=== PATIENT | female | born 1935 | race Caucasian/White ===

== ENCOUNTER → 2018-01-09 15:06 | Outpatient (CLI) | payer OTHER, SELFPAY ==
--- NOTE | 2018-01-09 | DI.MG.S_ITS ---
BILATERAL DIGITAL SCREENING MAMMOGRAM 3D/2D WITH CAD: 01/09/2018 CLINICAL: Routine screening. Comparison is made to exams dated: 01/03/2017 mammogram, 11/08/2014 mammogram, and 11/20/2015 mammogram - [facility]. There are scattered fibroglandular elements in both breasts. Current study was also evaluated with a Computer Aided Detection (CAD) system. There is a biopsy clip in the right breast. No significant masses, calcifications, or other findings are seen in either breast. There has been no significant interval change. IMPRESSION: NEGATIVE There is no mammographic evidence of malignancy. A 1 year screening mammogram is recommended. This exam was interpreted at Station ID: [id number]. NOTE: For mammograms, a report in lay terms will be sent to the patient. Approximately 15% of breast malignancies will not be visualized mammographically. In the management of a palpable breast mass, a negative mammogram must not discourage biopsy of a clinically suspicious lesion. Electronically Signed By: Adalid love/brittney:01/09/2018 16:31:00 copy to: Verenice Escoto letter sent: Normal Exam ACR BI-RADS Category 1: Negative 3341F
== END ==
PROVIDERS: Family Provider Family Medicine; PCP Family Medicine; Visit Provider Family Medicine
DX: Z12.31 Encounter for screening mammogram for malignant neoplasm of breast (principal)
CPT/HCPCS: 77063; 77067

== ENCOUNTER → 2018-02-22 07:24 | Outpatient (CLI) | payer OTHER, SELFPAY ==
[2018-02-22 08:11] LABS: Hemoglobin A1C% w Est Avg Glu 6.4 % (4.0-6.0)
[2018-02-22 08:25] LABS: Alanine Aminotransferase 24 IU/L (9-52); Albumin 4.1 g/dL (3.5-5.0); Albumin Globulin Ratio 1.4 (1.0-2.8); Alkaline Phosphatase 60 U/L (38-126); Aspartate Aminotransferase 23 IU/L (14-36); BUN Creatinine Ratio 24.3 (6-22); Bilirubin Total 0.6 mg/dL (0.2-1.3); Blood Urea Nitrogen 17 mg/dL (7-17); Calcium 9.6 mg/dL (8.4-10.2); Carbon Dioxide 30 mmol/L (22-32); Chloride 101 mmol/L (98-107); Cholesterol 130 mg/dL (140-199); Estimated Glomerular Filt Rate > 60.0 mL/min (>60); Glucose 140 mg/dL (80-110); HDL Cholesterol 43 mg/dL (40-60); HEMOLYSIS < 15 (0-50); LDL Cholesterol Calculated 61 mg/dL (<100); Potassium 4.7 mmol/L (3.4-5.1); Sodium 140 mmol/L (137-145); Total Protein 7.1 g/dL (6.3-8.2); Triglycerides 131 mg/dL (35-150)
[2018-02-22 08:27] LABS: Add Manual Diff / Slide Review NO; Basophils Percent Auto 0.6 % (0-2); Eosinophils Percent Auto 4.7 % (2-4); Hematocrit 39.1 % (36-46); Hemoglobin 13.4 g/dL (12.0-16.0); Lymphocytes Percent Auto 30.3 % (25-40); Mean Corpuscular HGB Conc 34.3 % (30-36); Mean Corpuscular Hemoglobin 29.3 PG (26-34); Mean Corpuscular Volume 85.3 fL (80-100); Monocytes Percent Auto 7.4 % (3-14); Neutrophils Absolute Auto 3600 /uL (3000-5900); Platelet Count 238 X10^3/uL (150-400); Red Blood Cell Count 4.59 X10^6/uL (4.0-5.2); Red Cell Distribution Width 13.4 % (11.6-14.8); White Blood Cell Count 6.4 X10^3/uL (4.5-11.0)
[2018-02-22 09:04] LABS: Thyroid Stimulating Hormone 4.77 uIU/mL (0.47-4.68)
== END ==
PROVIDERS: PCP Family Medicine; Visit Provider Family Medicine
DX: E11.9 Type 2 diabetes mellitus without complications (principal); E78.2 Mixed hyperlipidemia; I10 Essential (primary) hypertension
CPT/HCPCS: 36415; 80053; 80061; 83036; 84443; 85025

== ENCOUNTER → 2018-03-27 07:10 | Outpatient (CLI) | payer OTHER, SELFPAY ==
[2018-03-27 08:16] LABS: Creatinine Urine Random 59.4 mg/dL
[2018-03-27 08:20] LABS: Microalbumi Creatinin Ratio Ur 52.1 ug/mg CR (<30); Microalbumin Urine Random 3.1 mg/dL (0-1.6)
[2018-03-27 09:50] LABS: Free T3, Triiodothyronine Free 3.04 pg/mL (2.77-5.27); Free T4, Direct Thyroxine 0.88 ng/dL (0.78-2.19)
[2018-03-27 10:03] LABS: Thyroid Stimulating Hormone 3.72 uIU/mL (0.47-4.68)
== END ==
PROVIDERS: PCP Family Medicine; Visit Provider Family Medicine
DX: E11.9 Type 2 diabetes mellitus without complications (principal); E78.2 Mixed hyperlipidemia; I10 Essential (primary) hypertension; R79.89 Other specified abnormal findings of blood chemistry
CPT/HCPCS: 36415; 82043; 82570; 84439; 84443; 84481

== ENCOUNTER → 2019-01-10 14:51 | Outpatient (CLI) | payer OTHER, SELFPAY ==
--- NOTE | 2019-01-10 | DI.MG.S_ITS ---
BILATERAL DIGITAL SCREENING MAMMOGRAM 3D/2D WITH CAD: 01/10/2019 CLINICAL: Routine screening. Comparison is made to exams dated: 01/09/2018 mammogram and 01/03/2017 mammogram - [facility]. There are scattered fibroglandular elements in both breasts. Current study was also evaluated with a Computer Aided Detection (CAD) system. There is a benign biopsy clip in the right breast. No significant masses, calcifications, or other findings are seen in either breast. There has been no significant interval change. IMPRESSION: NEGATIVE There is no mammographic evidence of malignancy. A 1 year screening mammogram is recommended. This exam was interpreted at Station ID: [id number]. NOTE: For mammograms, a report in lay terms will be sent to the patient. Approximately 15% of breast malignancies will not be visualized mammographically. In the management of a palpable breast mass, a negative mammogram must not discourage biopsy of a clinically suspicious lesion. Electronically Signed By: Magalie gonzalez/brittney:01/10/2019 16:57:12 copy to: Verenice Escoto letter sent: Normal Exam ACR BI-RADS Category 1: Negative 3341F
== END ==
PROVIDERS: Family Provider Family Medicine; PCP Family Medicine; Visit Provider Family Medicine
DX: Z12.31 Encounter for screening mammogram for malignant neoplasm of breast (principal)
CPT/HCPCS: 77063; 77067

== ENCOUNTER → 2019-05-09 07:28 | Outpatient (CLI) | payer OTHER, SELFPAY ==
[2019-05-09 08:53] LABS: Add Manual Diff / Slide Review NO; Basophils Absolute Auto 0 /uL (0-100); Basophils Percent Auto 0.5 % (0-2); Eosinophils Absolute Auto 300 /uL (0-450); Eosinophils Percent Auto 3.3 % (2-4); Hematocrit 40.9 % (36-46); Lymphocytes Absolute Auto 2800 /uL (1100-4500); Mean Corpuscular HGB Conc 34.1 % (30-36); Mean Corpuscular Hemoglobin 29.5 PG (26-34); Mean Corpuscular Volume 86.4 fL (80-100); Monocytes Absolute Auto 500 /uL (0-900); Monocytes Percent Auto 6.7 % (3-14); Neutrophils Absolute Auto 4000 /uL (1500-7000); Neutrophils Percent Auto 52.5 % (50-75); Platelet Count 238 X10^3/uL (150-400); Red Blood Cell Count 4.73 X10^6/uL (4.0-5.2); Red Cell Distribution Width 13.4 % (11.6-14.8); White Blood Cell Count 7.6 X10^3/uL (4.5-11.0)
[2019-05-09 08:58] LABS: Hemoglobin A1C% w Est Avg Glu 6.3 % (4.0-6.0)
[2019-05-09 09:02] LABS: Alanine Aminotransferase 15 IU/L (<35); Albumin 4.2 g/dL (3.5-5.0); Albumin Globulin Ratio 1.3 (1.0-2.8); Alkaline Phosphatase 62 U/L (38-126); Aspartate Aminotransferase 25 IU/L (14-36); BUN Creatinine Ratio 28.9 (6-22); Bilirubin Total 0.5 mg/dL (0.2-1.3); Blood Urea Nitrogen 26 mg/dL (7-17); Calcium 9.5 mg/dL (8.4-10.2); Carbon Dioxide 28 mmol/L (22-32); Chloride 102 mmol/L (98-107); Cholesterol 149 mg/dL (140-199); Estimated Glomerular Filt Rate 59.9 mL/min (>60); Globulin 3.2 g/dL (1.7-4.1); Glucose 133 mg/dL (80-110); HDL Cholesterol 37 mg/dL (40-60); HEMOLYSIS < 15 (0-50); LDL Cholesterol Calculated 71 mg/dL (<100); Potassium 4.8 mmol/L (3.4-5.1); Sodium 136 mmol/L (137-145); Total Protein 7.4 g/dL (6.3-8.2); Triglycerides 204 mg/dL (35-150)
[2019-05-09 09:46] LABS: Microalbumi Creatinin Ratio Ur 30.9 ug/mg CR (<30); Microalbumin Urine Random 2.2 mg/dL (0-1.6)
== END ==
PROVIDERS: Family Provider Family Medicine; PCP Family Medicine; Visit Provider Family Medicine
DX: E11.9 Type 2 diabetes mellitus without complications (principal)
CPT/HCPCS: 36415; 80053; 80061; 82043; 82570; 83036; 85025

== ENCOUNTER → 2020-01-26 12:36 | Outpatient (CLI) | payer MEDICARE, SELFPAY ==
--- NOTE | 2020-01-26 | DI.MG.S_ITS ---
BILATERAL DIGITAL SCREENING MAMMOGRAM 3D/2D WITH CAD: 01/26/2020 CLINICAL: Routine screening. Comparison is made to exams dated: 01/10/2019 mammogram, 01/09/2018 mammogram, and 01/03/2017 mammogram - [facility]. There are scattered fibroglandular elements in both breasts. Current study was also evaluated with a Computer Aided Detection (CAD) system. There are benign calcifications in both breasts. There also is a biopsy clip in the right breast. No significant masses, calcifications, or other findings are seen in either breast. There has been no significant interval change. IMPRESSION: BENIGN There is no mammographic evidence of malignancy. A 1 year screening mammogram is recommended. This exam was interpreted at Station ID: [id number]. NOTE: For mammograms, a report in lay terms will be sent to the patient. Approximately 15% of breast malignancies will not be visualized mammographically. In the management of a palpable breast mass, a negative mammogram must not discourage biopsy of a clinically suspicious lesion. Electronically Signed By: Stephen tobar/brittney:01/28/2020 08:12:24 copy to: Reinaldo Dubois letter sent: Normal Exam ACR BI-RADS Category 2: Benign Finding(s) 3342F
== END ==
PROVIDERS: Family Provider Family Medicine; PCP Family Medicine; Referring Provider Family Medicine; Visit Provider Family Medicine
DX: Z12.31 Encounter for screening mammogram for malignant neoplasm of breast (principal)
CPT/HCPCS: 77063; 77067

== ENCOUNTER → 2020-04-15 08:07 | Outpatient (CLI) | payer MEDICARE, SELFPAY ==
[2020-04-15 09:32] LABS: Hemoglobin A1C% w Est Avg Glu 6.6 % (4.0-6.0)
[2020-04-15 09:46] LABS: Alanine Aminotransferase 14 IU/L (<35); Albumin 3.9 g/dL (3.5-5.0); Albumin Globulin Ratio 1.2 (1.0-2.8); Alkaline Phosphatase 49 U/L (38-126); Aspartate Aminotransferase 26 IU/L (14-36); BUN Creatinine Ratio 36.8 (6-22); Bilirubin Total 0.6 mg/dL (0.2-1.3); Blood Urea Nitrogen 25 mg/dL (7-17); Calcium 9.1 mg/dL (8.4-10.2); Carbon Dioxide 27 mmol/L (22-32); Chloride 105 mmol/L (98-107); Cholesterol 128 mg/dL (140-199); Estimated Glomerular Filt Rate > 60.0 mL/min (>60); Globulin 3.2 g/dL (1.7-4.1); Glucose 124 mg/dL (80-110); HDL Cholesterol 35 mg/dL (40-60); HEMOLYSIS 40 (0-50); LDL Cholesterol Calculated 57 mg/dL (<100); Potassium 4.6 mmol/L (3.4-5.1); Sodium 137 mmol/L (137-145); Total Protein 7.1 g/dL (6.3-8.2); Triglycerides 179 mg/dL (35-150)
[2020-04-15 09:48] LABS: Add Manual Diff / Slide Review NO; Basophils Absolute Auto 0 /uL (0-100); Basophils Percent Auto 0.5 % (0-2); Eosinophils Absolute Auto 200 /uL (0-450); Eosinophils Percent Auto 2.8 % (2-4); Hematocrit 40.1 % (36-46); Hemoglobin 13.4 g/dL (12.0-16.0); Lymphocytes Absolute Auto 2200 /uL (1100-4500); Lymphocytes Percent Auto 30.9 % (25-40); Mean Corpuscular HGB Conc 33.5 % (30-36); Mean Corpuscular Hemoglobin 29.3 PG (26-34); Mean Corpuscular Volume 87.5 fL (80-100); Monocytes Absolute Auto 300 /uL (0-900); Neutrophils Absolute Auto 4200 /uL (1500-7000); Neutrophils Percent Auto 60.8 % (50-75); Platelet Count 213 X10^3/uL (150-400); Red Blood Cell Count 4.59 X10^6/uL (4.0-5.2); Red Cell Distribution Width 13.3 % (11.6-14.8)
== END ==
PROVIDERS: Family Provider Family Medicine; PCP Family Medicine; Referring Provider Family Medicine; Visit Provider Family Medicine
DX: E11.9 Type 2 diabetes mellitus without complications (principal); E78.2 Mixed hyperlipidemia; I10 Essential (primary) hypertension
CPT/HCPCS: 36415; 80053; 80061; 83036; 85025

== ENCOUNTER → 2020-12-29 07:18 | Outpatient (CLI) | payer MEDICARE, SELFPAY ==
[2020-12-29 08:33] LABS: Hemoglobin A1C% w Est Avg Glu 6.1 % (4.0-6.0)
[2020-12-29 08:38] LABS: BUN Creatinine Ratio 24.4 (6-22); Blood Urea Nitrogen 19 mg/dL (7-17); Calcium 10.1 mg/dL (8.4-10.2); Carbon Dioxide 26 mmol/L (22-32); Chloride 102 mmol/L (98-107); Estimated Glomerular Filt Rate > 60.0 mL/min (>60); Glucose 140 mg/dL (80-110); HEMOLYSIS < 15 (0-50); Potassium 4.9 mmol/L (3.4-5.1); Sodium 134 mmol/L (137-145)
== END ==
PROVIDERS: Family Provider Family Medicine; PCP Family Medicine; Referring Provider Family Medicine; Visit Provider Family Medicine
DX: E11.9 Type 2 diabetes mellitus without complications (principal); I10 Essential (primary) hypertension
CPT/HCPCS: 36415; 80048; 83036

== ENCOUNTER → 2021-02-13 16:43 | Outpatient (CLI) | payer MEDICARE, SELFPAY ==
--- NOTE | 2021-02-13 | DI.MG.S_ITS ---
BILATERAL DIGITAL SCREENING MAMMOGRAM 3D/2D WITH CAD: 02/13/2021 CLINICAL: Routine screening. Comparison is made to exams dated: 01/26/2020 mammogram, 01/10/2019 mammogram, and 01/09/2018 mammogram - [facility]. There are scattered fibroglandular elements in both breasts. Current study was also evaluated with a Computer Aided Detection (CAD) system. There are benign calcifications in both breasts. There also is a biopsy clip in the right breast. No significant masses, calcifications, or other findings are seen in either breast. There has been no significant interval change. IMPRESSION: BENIGN There is no mammographic evidence of malignancy. A 1 year screening mammogram is recommended. This exam was interpreted at Station ID: [id number]. NOTE: For mammograms, a report in lay terms will be sent to the patient. Approximately 15% of breast malignancies will not be visualized mammographically. In the management of a palpable breast mass, a negative mammogram must not discourage biopsy of a clinically suspicious lesion. Electronically Signed By: Magalie gonzalez/brittney:02/13/2021 18:25:30 copy to: Reinaldo Dubois letter sent: Normal Exam ACR BI-RADS Category 2: Benign Finding(s) 3342F
== END ==
PROVIDERS: Family Provider Family Medicine; PCP Family Medicine; Referring Provider Family Medicine; Visit Provider Family Medicine
DX: Z12.31 Encounter for screening mammogram for malignant neoplasm of breast (principal)
CPT/HCPCS: 77063; 77067

== ENCOUNTER → 2021-06-10 09:34 | Outpatient (CLI) | payer MEDICARE, SELFPAY ==
[2021-06-10 10:06] LABS: Add Manual Diff / Slide Review NO; Basophils Absolute Auto 100 /uL (0-100); Basophils Percent Auto 0.8 % (0-2); Eosinophils Absolute Auto 200 /uL (0-450); Eosinophils Percent Auto 3.1 % (2-4); Hematocrit 41.4 % (36-46); Lymphocytes Absolute Auto 2200 /uL (1100-4500); Lymphocytes Percent Auto 34.4 % (25-40); Mean Corpuscular HGB Conc 33.7 % (30-36); Mean Corpuscular Hemoglobin 29.3 PG (26-34); Mean Corpuscular Volume 86.9 fL (80-100); Monocytes Absolute Auto 400 /uL (0-900); Monocytes Percent Auto 5.6 % (3-14); Neutrophils Absolute Auto 3500 /uL (1500-7000); Neutrophils Percent Auto 56.1 % (50-75); Platelet Count 252 X10^3/uL (150-400); Red Blood Cell Count 4.77 X10^6/uL (4.0-5.2); Red Cell Distribution Width 14.1 % (11.6-14.8); White Blood Cell Count 6.3 X10^3/uL (4.5-11.0)
[2021-06-10 10:15] LABS: Hemoglobin A1C% w Est Avg Glu 6.1 % (4.0-6.0)
[2021-06-10 10:30] LABS: Alanine Aminotransferase 19 IU/L (<35); Albumin 4.3 g/dL (3.5-5.0); Albumin Globulin Ratio 1.4 (1.0-2.8); Alkaline Phosphatase 53 U/L (38-126); Aspartate Aminotransferase 24 IU/L (14-36); Bilirubin Total 0.8 mg/dL (0.2-1.3); Blood Urea Nitrogen 14 mg/dL (7-17); Calcium 10.3 mg/dL (8.4-10.2); Carbon Dioxide 31 mmol/L (22-32); Chloride 103 mmol/L (98-107); Estimated Glomerular Filt Rate > 60.0 mL/min (>60); Glucose 123 mg/dL (80-110); HEMOLYSIS < 15 (0-50); Potassium 4.3 mmol/L (3.4-5.1); Sodium 135 mmol/L (137-145); Total Protein 7.3 g/dL (6.3-8.2)
[2021-06-10 10:57] LABS: TSH w/ Reflex to FT4 3.06 uIU/mL (0.47-4.68)
== END ==
PROVIDERS: Family Provider Family Medicine; PCP Family Medicine; Referring Provider Family Medicine; Visit Provider Family Medicine
DX: E11.9 Type 2 diabetes mellitus without complications (principal); I10 Essential (primary) hypertension; E78.2 Mixed hyperlipidemia
CPT/HCPCS: 36415; 80053; 83036; 84443; 85025

== ENCOUNTER → 2021-10-02 08:20 | Outpatient (CLI) | payer MEDICARE, SELFPAY ==
[2021-10-02 09:41] LABS: Hemoglobin A1C% w Est Avg Glu 5.9 % (4.0-6.0)
[2021-10-02 09:54] LABS: Alanine Aminotransferase 15 IU/L (<35); Albumin Globulin Ratio 1.3 (1.0-2.8); Alkaline Phosphatase 45 U/L (38-126); Aspartate Aminotransferase 24 IU/L (14-36); BUN Creatinine Ratio 30.2 (6-22); Bilirubin Total 0.7 mg/dL (0.2-1.3); Blood Urea Nitrogen 29 mg/dL (7-17); Calcium 9.6 mg/dL (8.4-10.2); Carbon Dioxide 27 mmol/L (22-32); Chloride 101 mmol/L (98-107); Cholesterol 158 mg/dL (140-199); Estimated Glomerular Filt Rate 58 mL/min (>60); Globulin 3.1 g/dL (1.7-4.1); Glucose 108 mg/dL (80-110); HDL Cholesterol 56 mg/dL (40-60); HEMOLYSIS < 15 (0-50); LDL Cholesterol Calculated 78 mg/dL (<100); Potassium 5.2 mmol/L (3.4-5.1); Sodium 136 mmol/L (137-145); Total Protein 7.1 g/dL (6.3-8.2); Triglycerides 119 mg/dL (35-150)
== END ==
PROVIDERS: Family Provider Family Medicine; PCP Family Medicine; Referring Provider Family Medicine; Visit Provider Family Medicine
DX: E11.9 Type 2 diabetes mellitus without complications (principal); I10 Essential (primary) hypertension; E78.2 Mixed hyperlipidemia
CPT/HCPCS: 36415; 80053; 80061; 83036

== ENCOUNTER → 2022-03-05 11:18 | Outpatient (CLI) | payer MEDICARE, SELFPAY ==
--- NOTE | 2022-03-05 | DI.MG.S_ITS ---
BILATERAL DIGITAL SCREENING MAMMOGRAM 3D/2D WITH CAD: 03/05/2022 CLINICAL: Routine screening. Comparison is made to exams dated: 02/13/2021 mammogram, 01/26/2020 mammogram, and 01/10/2019 mammogram - [facility]. There are scattered areas of fibroglandular density in both breasts (category b / 25%-50% glandular tissue). Current study was also evaluated with a Computer Aided Detection (CAD) system. There are benign calcifications in both breasts. There also is a biopsy clip in the right breast. No significant masses, calcifications, or other findings are seen in either breast. There has been no significant interval change. IMPRESSION: BENIGN There is no mammographic evidence of malignancy. A 1 year screening mammogram is recommended. This exam was interpreted at Station ID: [id number]. NOTE: For mammograms, a report in lay terms will be sent to the patient. Approximately 15% of breast malignancies will not be visualized mammographically. In the management of a palpable breast mass, a negative mammogram must not discourage biopsy of a clinically suspicious lesion. Electronically Signed By: Lopez Lugo M.D., jr/brittney:03/05/2022 11:55:51 copy to: Reinaldo Dubois letter sent: Normal Exam ACR BI-RADS Category 2: Benign Finding(s) 3342F
== END ==
PROVIDERS: Family Provider Family Medicine; PCP Family Medicine; Referring Provider Family Medicine; Visit Provider Family Medicine
DX: Z12.31 Encounter for screening mammogram for malignant neoplasm of breast (principal)
CPT/HCPCS: 77063; 77067

== ENCOUNTER → 2022-05-13 15:11 | Outpatient (CLI) | payer MEDICARE, SELFPAY ==
--- NOTE | 2022-05-13 15:13 | DI.RAD.S_ITS ---
PROCEDURE: XR FOOT RT MIN 3V INDICATIONS: Evalutate and Treat TECHNIQUE: 3 views of the foot were acquired. COMPARISON: None. FINDINGS: Bones: No fractures or dislocations. Mild hallux valgus is seen. Mild to moderate right foot joint osteoarthritic changes are seen most notably at 1st MTP joint. Small plantar calcaneal enthesophyte is seen. No suspicious bony lesions. Soft tissues: No tibiotalar joint effusion. Achilles tendon appears normal. Linear calcifications are seen within plantar fascia likely represent changes related to prior injury. IMPRESSION: No right foot fracture or dislocation. 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 Dictated by: Stephen Frank M.D. on 05/13/2022 at 17:15 Approved by: Stephen Frank M.D. on 05/13/2022 at 17:16
== END ==
PROVIDERS: Family Provider Family Medicine; PCP Family Medicine; Referring Provider Family Medicine; Visit Provider Family Medicine
DX: M19.071 Primary osteoarthritis, right ankle and foot (principal); M20.11 Hallux valgus (acquired), right foot; M79.671 Pain in right foot
CPT/HCPCS: 73630

== ENCOUNTER → 2022-06-09 08:48 | Outpatient (CLI) | payer MEDICARE, SELFPAY ==
[2022-06-09 09:35] LABS: Alanine Aminotransferase 25 IU/L (<35); Albumin Globulin Ratio 1.2 (1.0-2.8); Alkaline Phosphatase 69 U/L (38-126); Aspartate Aminotransferase 24 IU/L (14-36); BUN Creatinine Ratio 21.7 (6-22); Bilirubin Total 0.6 mg/dL (0.2-1.3); Blood Urea Nitrogen 15 mg/dL (7-17); Calcium 9.7 mg/dL (8.4-10.2); Carbon Dioxide 26 mmol/L (22-32); Chloride 99 mmol/L (98-107); Estimated Glomerular Filt Rate > 60 mL/min (>60); Globulin 3.3 g/dL (1.7-4.1); Glucose 116 mg/dL (80-110); HEMOLYSIS < 15 (0-50); Potassium 4.5 mmol/L (3.4-5.1); Sodium 135 mmol/L (137-145); Total Protein 7.3 g/dL (6.3-8.2)
[2022-06-09 09:42] LABS: Creatinine Urine Random 87.8 mg/dL
[2022-06-09 10:06] LABS: Microalbumin Urine Random 25.2 mg/dL (0-1.6)
== END ==
PROVIDERS: Family Provider Family Medicine; PCP Family Medicine; Referring Provider Family Medicine; Visit Provider Family Medicine
DX: E11.9 Type 2 diabetes mellitus without complications (principal); I10 Essential (primary) hypertension; M85.80 Other specified disorders of bone density and structure, unspecified site; N28.9 Disorder of kidney and ureter, unspecified
CPT/HCPCS: 36415; 80053; 82043; 82570; 83036

== ENCOUNTER → 2022-08-17 10:39 | Outpatient (CLI) | payer MEDICARE, SELFPAY ==
--- NOTE | 2022-08-17 10:59 | DI.DEXA.S_ITS ---
Indication: osteopenia; Referring Provider: FROILAN TORRE Study: Bone densitometry was performed. Exam Date: August 17, 2022 Accession number: [id number] Bone Density: Region BMD T-score Z-score Classification AP Spine(L1-L4) 1.336 2.6 5.5 Normal Femoral Neck (Left) 0.554 -2.7 -0.1 Osteoporosis Total Hip (Left) 0.723 -1.8 0.5 Osteopenia Femoral Neck (Right) 0.609 -2.2 0.4 Osteopenia Total Hip (Right) 0.698 -2.0 0.3 Osteopenia Total Hip Mean 0.710 -1.9 0.4 Osteopenia World Health Organization criteria for BMD impression classify patients as: Normal (T-score at or above -1.0), Osteopenia (T-score between -1.0 and -2.5), or Osteoporosis (T-score at or below -2.5). 10-year Fracture Risk: FRAX not reported because: Some T-score for Spine Total or Hip Total or Femoral Neck at or below -2.5 Previous Exams: -- Region Exam Age BMD T-score BMD Change BMD Change Date g/cm2 vs Baseline vs Previous -- AP Spine (L1-L4) 08/17/2022 87 1.336 2.6 -0.092 (-6.5%)# -0.092 (-6.5%)# 07/29/2016 81 1.428 3.5 Total Hip(Left) 08/17/2022 87 0.723 -1.8 -0.096 (-11.8%)# -0.096 (-11.8%)# 07/29/2016 81 0.820 -1.0 Total Hip(Right) 08/17/2022 87 0.698 -2.0 -0.110 (-13.6%)# -0.110 (-13.6%)# 07/29/2016 81 0.808 -1.1 -- *Denotes significance at 95% confidence level, LSC for AP Spine = 0.022 g/cm2, LSC for Total Hip = 0.027 g/cm2 # Denotes dissimilar scan types or analysis methods Impression: The patient has osteoporosis, based on the Left Femoral Neck T-score. No significant bone loss was observed. Discussion: INCREASED RISK OF FRACTURE. BONE DENSITY IS UNDESIRABLY LOW AT ONE OR MORE SKELETAL SITES, CONSISTENT WITH POSTMENOPAUSAL OSTEOPOROSIS. This patient's lowest T-score meets the World Health Organization's (WHO) criteria for osteoporosis at one or more sites (T-score -2.5 or below). In untreated patients, the risk of osteoporotic fracture increases approximately two-fold for each 1.0 SD decrease in T-score. Low bone density is not the only risk factor for fracture; also consider factors such as patient's age, frailty or poor health, risk of falling, risk of injury, previous osteoporotic fracture, family history of osteoporosis, cigarette smoking, low body weight, etc. Not everyone with low bone mineral density has osteoporosis; osteomalacia and other metabolic bone disorders should also be considered. Patients who have osteoporosis should be evaluated for specific diseases and conditions (secondary causes) that may cause or contribute to bone loss. The [place] [employer]ocrinologists (AACE) and National Osteoporosis Foundation (NOF) recommend pharmacologic intervention for all postmenopausal women whose T-score is in this range. The patient should follow a healthful lifestyle (good nutrition with adequate calcium and vitamin D, and appropriate weight-bearing exercise). Follow-Up: Consider a repeat BMD and Vertebral Fracture Assessment (VFA) exam in 2 years or sooner if medically necessary, to reassess this patient's status. Reported by: Jennifer Rolon M.D. on 08/17/2022 11:06:00 AM.
== END ==
PROVIDERS: Family Provider Family Medicine; PCP Family Medicine; Referring Provider Family Medicine; Visit Provider Family Medicine
DX: Z78.0 Asymptomatic menopausal state (principal); E11.9 Type 2 diabetes mellitus without complications; I10 Essential (primary) hypertension; M81.0 Age-related osteoporosis without current pathological fracture
CPT/HCPCS: 77080

== ENCOUNTER → 2022-10-22 07:39 | Outpatient (CLI) | payer MEDICARE, SELFPAY ==
[2022-10-22 08:35] LABS: Add Manual Diff / Slide Review NO; Basophils Absolute Auto 100 /uL (0-100); Eosinophils Absolute Auto 300 /uL (0-450); Hematocrit 37.3 % (36-46); Hemoglobin 12.9 g/dL (12.0-16.0); Lymphocytes Absolute Auto 1900 /uL (1100-4500); Lymphocytes Percent Auto 33.6 % (25-40); Mean Corpuscular HGB Conc 34.5 % (30-36); Mean Corpuscular Hemoglobin 29.5 PG (26-34); Mean Corpuscular Volume 85.8 fL (80-100); Monocytes Absolute Auto 400 /uL (0-900); Monocytes Percent Auto 7.4 % (3-14); Neutrophils Absolute Auto 3000 /uL (1500-7000); Platelet Count 251 X10^3/uL (150-400); Red Blood Cell Count 4.35 X10^6/uL (4.0-5.2); Red Cell Distribution Width 13.3 % (11.6-14.8); White Blood Cell Count 5.8 X10^3/uL (4.5-11.0)
[2022-10-22 08:48] LABS: Alanine Aminotransferase 21 IU/L (<35); Albumin Globulin Ratio 1.1 (1.0-2.8); Alkaline Phosphatase 61 U/L (38-126); Aspartate Aminotransferase 25 IU/L (14-36); BUN Creatinine Ratio 29.2 (6-22); Bilirubin Total 0.4 mg/dL (0.2-1.3); Blood Urea Nitrogen 21 mg/dL (7-17); Calcium 9.8 mg/dL (8.4-10.2); Carbon Dioxide 26 mmol/L (22-32); Chloride 102 mmol/L (98-107); Estimated Glomerular Filt Rate > 60 mL/min (>60); Globulin 3.5 g/dL (1.7-4.1); Glucose 129 mg/dL (80-110); HEMOLYSIS < 15 (0-50); Potassium 4.6 mmol/L (3.4-5.1); Sodium 135 mmol/L (137-145); Total Protein 7.5 g/dL (6.3-8.2)
[2022-10-23 09:51] LABS: x Labcorp Estim. Avg Glu (eAG) 128 mg/dL (.); x Labcorp Hemoglobin A1c 6.1 % (4.8-5.6)
== END ==
PROVIDERS: Family Provider Family Medicine; PCP Family Medicine; Referring Provider Family Medicine; Visit Provider Family Medicine
DX: E11.9 Type 2 diabetes mellitus without complications (principal); E78.2 Mixed hyperlipidemia; I10 Essential (primary) hypertension
CPT/HCPCS: 36415; 80053; 83036; 85025

== ENCOUNTER → 2022-12-27 15:15 | Outpatient (CLI) | payer MEDICARE, SELFPAY ==
--- NOTE | 2022-12-27 15:16 | DI.RAD.S_ITS ---
PROCEDURE: XR LUMBAR SPINE MIN 4V INDICATIONS: Worsening lower back pain TECHNIQUE: 5 views of the lumbar spine were acquired, including bilateral oblique views. COMPARISON: None. FINDINGS: Bones: 5 nonrib-bearing vertebrae are present. There is mild levoscoliosis of lumbar spine with apex at L2-3 level. Loss of disc height, degenerative endplate changes and bilateral facet arthrosis throughout lumbar spine is seen more notably at L3-4 and L4-5 levels. There is 7 millimeter retrolisthesis of L3 on L4 and 7 millimeter retrolisthesis of L2 on L3. 7 millimeter anterolisthesis of L5 on S1 is also seen. No vertebral body compression fractures. No suspicious bony lesions. Soft tissues: Overlying bowel gas pattern is normal. No suspicious soft tissue calcifications. Oblique images: No pars defects. IMPRESSION: Mild scoliosis and likely degenerative retrolisthesis at L2-3 and L3-4 levels as above. 7 millimeter anterolisthesis of L5 on S1. No acute compression fracture. Degenerative disc disease throughout lumbar spine. No gross pars defects. Dictated by: Stephen Frank M.D. on 12/27/2022 at 16:36 Approved by: Stephen Frank M.D. on 12/27/2022 at 16:38
== END ==
PROVIDERS: Family Provider Family Medicine; PCP Family Medicine; Referring Provider Family Medicine; Visit Provider Family Medicine
DX: M43.17 Spondylolisthesis, lumbosacral region (principal); M41.9 Scoliosis, unspecified; M54.50 Low back pain, unspecified; M51.36 Other intervertebral disc degeneration, lumbar region; E11.9 Type 2 diabetes mellitus without complications; E78.2 Mixed hyperlipidemia; I10 Essential (primary) hypertension; R32 Unspecified urinary incontinence
CPT/HCPCS: 72110

== ENCOUNTER → 2023-03-08 15:28 | Outpatient (CLI) | payer MEDICARE, SELFPAY ==
--- NOTE | 2023-03-08 15:29 | DI.MG.S_ITS ---
BILATERAL DIGITAL SCREENING MAMMOGRAM 3D/2D WITH CAD: 03/08/2023 CLINICAL: Routine screening. Comparison is made to exams dated: 03/05/2022 mammogram, 02/13/2021 mammogram, and 01/26/2020 mammogram - [facility]. There are scattered areas of fibroglandular density in both breasts (category b / 25%-50% glandular tissue). Current study was also evaluated with a Computer Aided Detection (CAD) system. There are benign calcifications in both breasts. There also is a biopsy clip in the right breast. No significant masses, calcifications, or other findings are seen in either breast. There has been no significant interval change. IMPRESSION: BENIGN There is no mammographic evidence of malignancy. A 1 year screening mammogram is recommended. This exam was interpreted at Station ID: [id number]. NOTE: For mammograms, a report in lay terms will be sent to the patient. Approximately 15% of breast malignancies will not be visualized mammographically. In the management of a palpable breast mass, a negative mammogram must not discourage biopsy of a clinically suspicious lesion. Electronically Signed By: Vincent levine/brittney:03/09/2023 10:14:02 letter sent: Normal Exam ACR BI-RADS Category 2: Benign Finding(s) 3342F
== END ==
PROVIDERS: Family Provider Family Medicine; PCP Family Medicine; Referring Provider Family Medicine; Visit Provider Family Medicine
DX: Z12.31 Encounter for screening mammogram for malignant neoplasm of breast (principal)
CPT/HCPCS: 77063; 77067

== ENCOUNTER → 2023-04-08 09:10 | Outpatient (CLI) | payer MEDICARE, SELFPAY ==
--- NOTE | 2023-04-08 09:11 | DI.MRI.S_ITS ---
/PROCEDURE: MR LUMBAR SPINE WO CON INDICATIONS: Progressive low back pain with neurogenic claudication TECHNIQUE: Noncontrast sagittal T1 spin echo and T2 fast echo, sagittal STIR, and T2 fast spin echo through the lumbar spine. In cases with scoliosis, additional coronal T2 fast spin echo may be performed. COMPARISON: [facility], , L-SPINE WITHOUT CONTRAST, 10/15/2015, 19:31. FINDINGS: Image quality: Excellent. Alignment and Curvature: There is grade 1 L3 on L4 retrolisthesis similar in extent to the study dated October 15, 2015. Bone Marrow: Marrow is of normal overall signal. No acute vertebral body compression fractures. Spinal Cord: Conus medullaris terminates at the L1 level. Visualized cord demonstrates normal signal and size. Paraspinous Soft Tissues: No paravertebral masses. There is grade 1 L3 on L4 retrolisthesis and grade 1 L5 on S1 anterolisthesis. T12-L1: Mild disc desiccation. Moderate facet ligamentum flavum hypertrophy. No canal stenosis. No foraminal stenosis. L1-L2: Moderate disc desiccation and height loss. Broad-based disc bulge. Mild facet ligamentum flavum hypertrophy. No canal stenosis. Mild bilateral foraminal stenosis. Findings are unchanged from the 2016 study. L2-L3: Moderate disc desiccation and height loss. Broad-based disc bulge. Mild facet ligamentum flavum hypertrophy. No canal stenosis. Mild bilateral neural foraminal stenosis. Findings are similar to the 2016 study. L3-L4: Grade 1 retrolisthesis. Severe disc desiccation and height loss. Reactive endplate changes which have slightly increased in extent when compared with the 2016 study. Mild canal stenosis. Moderate bilateral foraminal stenosis. Degree of canal and foraminal narrowing is unchanged from the prior study. L4-L5: Moderate disc desiccation and height loss. Posterior central disc protrusion with moderate to severe facet and ligamentum flavum hypertrophy. Severe canal stenosis. Moderate bilateral foraminal stenosis. The size of the central disc protrusion is slightly increased when compared with the prior study from 2016. L5-S1: Trace anterolisthesis. Moderate disc desiccation and height loss. Severe facet ligamentum flavum hypertrophy. No canal stenosis. Moderate right and severe left foraminal stenosis. Findings are similar to the 2016 study. IMPRESSION: 1. Overall findings are similar to the MRI dated October 15, 2015. There is slightly increased reactive endplate changes at L3-4 when compared with the prior study. 2. As before, there is moderate bilateral foraminal stenosis at L3-4 and L4-5, moderate right foraminal stenosis at L5-S1 and severe left foraminal stenosis at L5-S1. Dictated by: Madeleine Mai M.D. on 04/08/2023 at 12:28 Approved by: Madeleine Mai M.D. on 04/08/2023 at 12:33
== END ==
PROVIDERS: Family Provider Family Medicine; PCP Family Medicine; Referring Provider Physical Medicine & Rehabilitation; Visit Provider Physical Medicine & Rehabilitation
DX: M48.062 Spinal stenosis, lumbar region with neurogenic claudication (principal); M48.07 Spinal stenosis, lumbosacral region; M47.816 Spondylosis without myelopathy or radiculopathy, lumbar region; M47.817 Spondylosis without myelopathy or radiculopathy, lumbosacral region; M47.26 Other spondylosis with radiculopathy, lumbar region
CPT/HCPCS: 72148

== ENCOUNTER 2023-05-03 14:21 | Outpatient (CLI) | payer MEDICARE, SELFPAY ==
[2023-05-03] VITALS (8 sets, daily range): BP systolic 135–190; BP diastolic 70–82; PULSE 59–71; RESP 8–20; TEMP 36.6; O2SAT 96–100
--- NOTE | 2023-05-03 | DI.RAD.S_ITS ---
PROCEDURE: PAIN L/S TRANSFORAM INJECT VJ COMPARISON: [facility], MR, MR LUMBAR SPINE WO CON, 04/08/2023, 9:23. INDICATIONS: Spinal stenosis of lumbar region with neurogenic claudication FINDINGS: Fluoroscopic spot filming was performed to verify placement of spinal needles on both sides at the L4-L5 level, as labeled on the films. Appropriate location of the needle tips was confirmed by injection of iodinated contrast. IMPRESSION: Intraprocedural examination demonstrating appropriate positions of the needles. Dictated by: Peter Art M.D. on 05/03/2023 at 17:45 Approved by: Peter Art M.D. on 05/03/2023 at 17:46
[2023-05-03] MEDS: MIDAZOLAM 2 MG/2 ML VIAL IV (15:20)
[2023-05-03] MEDS: DEXAMETHASONE 10 MG/ML VIAL 20 MG INJ (15:23)
[2023-05-03] MEDS: iopamidoL 15 ML VIAL 3 ML INJ (15:23)
[2023-05-03] MEDS: BETAMETHASONE 30 MG/5 ML MDV 12 MG INJ (15:23)
[2023-05-03] MEDS: BUPIVACAINE 0.25% (PF) VIAL 2 ML INJ (15:23)
--- NOTE | 2023-05-03 15:39 | PM.PROC.IR.1 ---
Date/Time/Diagnoses Date of procedure: 05/03/23 Time of procedure: 15:39 Pre-procedure diagnosis: 1. FORAMINAL STENOSIS WITH LE SYMPTOMS Procedure Notes Procedure: 1. FLUOROSCOPICALLY GUIDED CONTRAST CONTROLLED TRANSFORAMINAL EPIDURAL STEROID INJECTION - BILATERAL L4/5 TFESI Indications: Theresa is referred by Dr. Moya for treatment of Foraminal Stenosis with bilateral LE Symptoms Physician: Chente Rodriguez Total Fluoroscopy time (seconds): 18 Total sedation minutes: 14 Complications: none Procedure in detail & Post-procedure care: FINDINGS Foraminal Nerve Root Compression secondary to disc disease and facet hypertrophy DESCRIPTION OF PROCEDURE Following review of allergy and review of potential side effects and complications, including, but not necessarily limited to, infection, allergic reaction, local tissue breakdown, stroke, temporary or permanent nerve injury, paralysis, and possible , the patient indicated that the patient understood and agreed to proceed. An informed consent document was signed by the patient, witnessed by a nurse, and placed in the patient's chart. Additionally, other treatment options including medications, modalities, and physical therapy were reviewed with the patient. After review of previous anaesthesic history and IV conscious sedation the patient was deemed safe to proceed with today?s procedure with IV conscious sedation as ASA class II designation. Safety time-out was performed to confirm patient ID, procedure to be performed and site of procedure. IV sedation was accomplished with a combination of 2mg of Versed was administered by the RN after DO order, titrated to patient comfort during the course of the procedure while the patient remained responsive to all verbal commands In the prone position following sterile prep and drape of the lumbar region, the right L4/5 posterior neuroforamen was identified fluoroscopically. The skin was anesthetized via a 25-gauge 1.5-inch needle with 1% lidocaine solution. At this point, a 25-gauge 3.5-inch spinal needle was atraumatically introduced and advanced under fluoroscopic guidance through the posterior right L4/5 neuroforamen to approximately the anterior aspect of the canal. Depth was confirmed on lateral view. Following negative aspiration, injection of approximately 1.5cc of Isovue 200 under live fluoroscopy in the AP view confirmed excellent flow along the nerve root, into the epidural space without vascular or intrathecal uptake observed Radiological data, including multiple fluoroscopic views of the lumbosacral spine, reveal a spinal needle at the right L4/5 posterior neuroforamen. Subsequent views show flow of contrast material flowing superiorly and inferiorly along the nerve root confirming epidural flow. Subsequently, a test dose of 1.5cc of 1% lidocaine solution was administered and patient was observed for two minutes for signs or symptoms of complications, including abdominal pain, shortness of breath, bilateral upper or lower extremity weakness, nausea and vomiting, prior to steroid injection. At this point, a total of 2cc or 10mg of dexamethasone and 6mg betamethasone was injected without incident. Attention was then refocused to the left L4/5 level where the identical procedure was replicated. The procedure tolerated the procedure well without signs or symptoms of complications prior to transfer to the recovery area continued monitoring without incident. The patient was then transferred to the recovery area where they were observed for an appropriate time after the injection. The patient reported a VAS score of 7 prior to the procedure and a post-procedure VAS of 0. POST OP INSTRUCTIONS The patient was provided a Pain Log to continue to record their response to the target-specific procedure prior to follow-up visit with their referring physician. Additionally, specific post-injection care instructions and a contact number to our office were provided if concerns arise regarding possible complications associated with the procedure are suspected.
== END 2023-05-03 15:52 | disposition home or self-care (01) ==
LOC: RAD 14:23
PROVIDERS: Family Provider Family Medicine; PCP Family Medicine; Referring Provider Physical Medicine & Rehabilitation; Visit Provider Physical Medicine & Rehabilitation
DX: M48.061 Spinal stenosis, lumbar region without neurogenic claudication (principal); M51.16 Intervertebral disc disorders with radiculopathy, lumbar region; M47.26 Other spondylosis with radiculopathy, lumbar region
CPT/HCPCS: 64483; 99152; J0702; J1100; J2250; J3490

== ENCOUNTER → 2023-06-17 08:01 | Outpatient (CLI) | payer MEDICARE, SELFPAY ==
[2023-06-17 10:23] LABS: Hemoglobin A1C% w Est Avg Glu 6.1 % (4.0-6.0)
[2023-06-17 10:43] LABS: Alanine Aminotransferase 19 IU/L (<35); Albumin Globulin Ratio 1.4 (1.0-2.8); Alkaline Phosphatase 55 U/L (38-126); BUN Creatinine Ratio 29.7 (6-22); Bilirubin Total 0.8 mg/dL (0.2-1.3); Blood Urea Nitrogen 19 mg/dL (7-17); Calcium 10.1 mg/dL (8.4-10.2); Carbon Dioxide 27 mmol/L (22-32); Chloride 97 mmol/L (98-107); Cholesterol 175 mg/dL (140-199); Estimated Glomerular Filt Rate > 60 mL/min (>60); Globulin 2.9 g/dL (1.7-4.1); Glucose 112 mg/dL (80-110); HDL Cholesterol 59 mg/dL (40-60); HEMOLYSIS < 15 (0-50); LDL Cholesterol Calculated 84 mg/dL (<100); Sodium 131 mmol/L (137-145); Total Protein 6.9 g/dL (6.3-8.2); Triglycerides 159 mg/dL (35-150)
[2023-06-17 15:29] LABS: Aspartate Aminotransferase 23 IU/L (14-36)
== END ==
LOC: LAB 08:02
PROVIDERS: Family Provider Family Medicine; PCP Family Medicine; Referring Provider Family Medicine; Visit Provider Family Medicine
DX: E11.9 Type 2 diabetes mellitus without complications (principal); I10 Essential (primary) hypertension; E78.2 Mixed hyperlipidemia
CPT/HCPCS: 36415; 80053; 80061; 83036

== ENCOUNTER → 2023-07-20 16:12 | Outpatient (CLI) | payer MEDICARE, SELFPAY ==
--- NOTE | 2023-07-20 16:13 | DI.MRI.S_ITS ---
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 COMPARISON: None. FINDINGS: Image quality: Susceptibility artifact can be seen posteriorly. CSF spaces: Ventricles appear symmetric in size and shape. Basal cisterns are patent. 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 Brain: No intracranial bleeds or mass effects. Generalized brain parenchymal volume loss is seen. No abnormal regional volume loss is seen. Mild chronic small vessel ischemic change can be seen within the periventricular deep white matter. Brainstem appears normal. Diffusion-weighted images show no acute infarct. No chronic ischemic insults. Normal intravascular flow voids are present. Skull and face: Calvarial bone marrow is normal in signal. Orbits are normal. Note is made of bilateral lens replacements. Sinuses: Sinuses and mastoids are clear. IMPRESSION: Generalized brain parenchymal volume loss is seen, without focal abnormal regional volume loss. Associated bilateral subdural hygromas can be seen. Mild chronic small vessel ischemic change can be seen. No findings of acute or subacute infarction can be seen. No prior territorial infarct can be seen. Dictated by: Peter Art M.D. on 07/20/2023 at 16:02 Approved by: Peter Art M.D. on 07/20/2023 at 16:03
[2023-07-22 13:19] LABS: Fecal Immunochemical Test Negative (Negative)
== END ==
PROVIDERS: Family Provider Family Medicine; PCP Family Medicine; Referring Provider Family Medicine; Visit Provider Family Medicine
DX: G96.00 Cerebrospinal fluid leak, unspecified (principal); G31.84 Mild cognitive impairment of uncertain or unknown etiology
CPT/HCPCS: 70551; 82274

== ENCOUNTER 2023-10-05 10:12 | Emergency (ER) | payer MEDICARE, SELFPAY ==
[2023-10-05 10:28] VITALS: BP 190/83; PULSE 70; RESP 18; TEMP 36.4; O2SAT 100; BMI 27.4
--- NOTE | 2023-10-05 10:33 | DI.RAD.S_ITS ---
PROCEDURE: XR KNEE LT 3V INDICATIONS: pain/can't walk TECHNIQUE: 3 views of the knee were acquired. COMPARISON: None. FINDINGS: Bones: No fractures or dislocations. No suspicious bony lesions. Posterior femoral spur. Moderate to severe tricompartmental arthritic changes. Soft tissues: Moderate joint effusion. No suspicious soft tissue calcifications. Chondrocalcinosis is present. IMPRESSION: Prominent arthritic changes and mild effusion. No visualized acute fracture or dislocation. However, if clinical concern and/or pain persist, short interval imaging followup in 7-10 days is recommended, as occult injury cannot be definitively excluded. Dictated by: Zenobia Strong M.D. on 10/05/2023 at 11:29 Approved by: Zenobia Strong M.D. on 10/05/2023 at 11:30
--- NOTE | 2023-10-05 10:56 | ED_ITS ---
HPI - Extremity Problem General Chief complaint: Extremity Problem,Nontraumatic Stated complaint: cant walk on lt foot hurts Time Seen by Provider: 10/05/23 10:56 Source: patient Mode of arrival: Wheelchair Related Data Home Medications Medication Instructions Recorded Confirmed Fish Oil (Fish Oil 500 MG Softgel) 500 mg PO QDAY ##0 07/20/12 08/29/23 aspirin 81 mg tablet,delayed 81 mg PO QDAY ##0 07/20/12 08/29/23 release cholecalciferol (vitamin D3) 10 800 unit PO QDAY ##0 07/20/12 08/29/23 mcg (400 unit) chewable tablet (Vitamin D3) loratadine 10 mg tablet (Claritin) 10 mg PO QDAY ##0 07/20/12 08/29/23 famotidine [Pepcid] PO 02/03/21 08/29/23 amlodipine 5 mg tablet 5 mg PO DAILY 03/28/23 08/29/23 calcium carbonate 600 mg calcium 600 mg PO DAILY 03/28/23 08/29/23 (1,500 mg) tablet (Calcium) Previous Rx's Medication Instructions Recorded gabapentin 300 mg capsule 300 mg PO HS #90 caps 02/23/18 (Neurontin) blood-glucose meter (Blood Glucose #1 ea 04/17/20 Monitoring kit) Disabled Parking Permit #1 ea 08/19/20 blood sugar diagnostic (Blood #100 ea 05/13/22 Glucose Test strips) oxybutynin chloride 10 mg 10 mg PO BID #180 tabs 06/23/23 tablet,extended release 24 hr losartan 100 mg tablet 100 mg .Route .COMPLEX #90 tabs 09/06/23 atorvastatin 20 mg tablet 20 mg PO DAILY #90 tabs 09/26/23 Allergies Allergy/AdvReac Type Severity Reaction Status Date / Time lisinopril AdvReac Mild COUGH Verified 08/29/23 11:08 Patient History Medical History Hyponatremia Lumbar stenosis with neurogenic claudication Facet arthropathy, lumbar Chronic lower back pain Foot pain, right Renal insufficiency Osteopenia GERD (gastroesophageal reflux disease) Scar tissue Hip problem Seasonal allergies Spinal stenosis (~2013) Measles Hearing loss (~1940) History of urinary incontinence Diabetes mellitus Hypertension Hyperlipidemia Surgical History Anesthesia Surgical procedure planned (~08/29/13) History of cataract removal with insertion of prosthetic lens (11/02/11) History of cataract removal with insertion of prosthetic lens (10/19/11) Status post colonoscopy Status post appendectomy Status post tubal ligation Family History Child Hypertension High cholesterol Mother Hypertension High cholesterol Sister Age: 85 Rheumatoid arthritis Brother Cancer Father No problems noted. Social History Smoking Status: Never smoker Smoking Status: Never smoker Substance Use Type: does not use Exam Initial Vital Signs Initial Vital Signs: Vital Signs Temperature 97.5 F L 10/05/23 10:28 Pulse Rate 70 10/05/23 10:28 Respiratory Rate 18 10/05/23 10:28 Blood Pressure 190/83 H 10/05/23 10:28 Pulse Oximetry 100 10/05/23 10:28 Oxygen Delivery Method Room Air 10/05/23 10:28 Course Orders Ordered: ED Orders 10/05/23 10:33 XR knee LT 3V Stat Vital Signs Vital signs: Vital Signs - 8 hr 10/05/23 10:28 Temperature 97.5 F L Pulse Rate 70 Respiratory Rate 18 Blood Pressure 190/83 H Pulse Oximetry 100 Oxygen Delivery Method Room Air Discharge Plan Departure Patient Disposition: Home Clinical Impression: Arthritis of knee Activity Restrictions/Additional Instructions: Thank you for coming to the [facility] Emergency Department today. As we discussed there were no fractures in the x-rays that we performed today. It did show prominent arthritic changes as we suspected. Please follow up with the primary care provider for outpatient management of this knee arthritis. I recommended ibuprofen and Tylenol as well as rest, ice, compression and elevation until the pain improves. Please return to the emergency department if you develop any significant new or worsening pain, numbness, or any other concerning signs or symptoms. I hope you feel better soon. Please follow up with your primary care provider within a week if your symptoms continue. If you do not have a primary care provider please contact the [facility] Resource line at [phone]. They will ask some questions about your medical history and help you get set up with a provider in the community. Prescriptions: No Action aspirin 81 MG tablet,delayed release (DR/EC) 81 mg PO QDAY Qty: 0 Fish Oil (Fish Oil 500 MG Softgel) 500 mg PO QDAY Qty: 0 loratadine [Claritin] 10 MG tablet 10 mg PO QDAY Qty: 0 cholecalciferol (vitamin D3) [Vitamin D3] 400 UNIT tablet,chewable 800 unit PO QDAY Qty: 0 (DME) Disabled Parking Permit See Rx Instructions .ROUTE .MEDSUPPLY Qty: 1 0RF Rx Instructions: Valid for 5 years losartan 100 mg tablet 100 mg .ROUTE .COMPLEX Qty: 90 3RF Rx Instructions: 100 mg once daily atorvastatin 20 mg tablet 20 mg PO DAILY Qty: 90 3RF gabapentin [Neurontin] 300 mg capsule 300 mg PO HS Qty: 90 1RF (DME) blood-glucose meter [Blood Glucose Monitoring] Kit See Rx Instructions .ROUTE .MEDSUPPLY Qty: 1 0RF Rx Instructions: One touch Verio IQ- use to check blood sugars once daily famotidine [Pepcid] PO (DME) Blood Glucose Test Strip See Rx Instructions .ROUTE .MEDSUPPLY Qty: 100 2RF Rx Instructions: Use One Touch Verio test strips with monitor to test blood sugars once daily. oxybutynin chloride 10 mg tablet extended release 24hr 10 mg PO BID Qty: 180 3RF amlodipine 5 mg tablet 5 mg PO DAILY calcium carbonate [Calcium 600] 600 mg calcium (1,500 mg) tablet 600 mg PO DAILY Referrals: Klever Moya DO [Primary Care Provider] - Stand Alone Forms: Patient Portal/API
--- NOTE | 2023-10-05 11:09 | ED.EXTPRO ---
HPI - Extremity Problem <Fernando Escudero PA-C - Last Filed: 10/05/23 11:39> General Chief complaint: Extremity Problem,Nontraumatic Stated complaint: cant walk on lt foot hurts Time Seen by Provider: 10/05/23 10:56 Source: patient Mode of arrival: Wheelchair History of Present Illness HPI Narrative: This is a 88-year-old female presenting to the emergency department due to left knee pain. States it began yesterday afternoon. Does not recall falling or twisting her knee irregularly. Does not recall any injuries to the knee otherwise. Denies any fevers, nausea, vomiting, or any other systemic symptoms. Denies any pain to her posterior calf or popliteal area. Denies any swelling of the left lower extremity. Denies any numbness or any other concerning signs or symptoms. States she has a history of osteoarthritis and ?bone grinding on bone?. Related Data Home Medications Medication Instructions Recorded Confirmed Fish Oil (Fish Oil 500 MG Softgel) 500 mg PO QDAY ##0 07/20/12 08/29/23 aspirin 81 mg tablet,delayed 81 mg PO QDAY ##0 07/20/12 08/29/23 release cholecalciferol (vitamin D3) 10 800 unit PO QDAY ##0 07/20/12 08/29/23 mcg (400 unit) chewable tablet (Vitamin D3) loratadine 10 mg tablet (Claritin) 10 mg PO QDAY ##0 07/20/12 08/29/23 famotidine [Pepcid] PO 02/03/21 08/29/23 amlodipine 5 mg tablet 5 mg PO DAILY 03/28/23 08/29/23 calcium carbonate 600 mg calcium 600 mg PO DAILY 03/28/23 08/29/23 (1,500 mg) tablet (Calcium) Previous Rx's Medication Instructions Recorded gabapentin 300 mg capsule 300 mg PO HS #90 caps 02/23/18 (Neurontin) blood-glucose meter (Blood Glucose #1 ea 04/17/20 Monitoring kit) Disabled Parking Permit #1 ea 08/19/20 blood sugar diagnostic (Blood #100 ea 05/13/22 Glucose Test strips) oxybutynin chloride 10 mg 10 mg PO BID #180 tabs 06/23/23 tablet,extended release 24 hr losartan 100 mg tablet 100 mg .Route .COMPLEX #90 tabs 09/06/23 atorvastatin 20 mg tablet 20 mg PO DAILY #90 tabs 09/26/23 Allergies Allergy/AdvReac Type Severity Reaction Status Date / Time lisinopril AdvReac Mild COUGH Verified 08/29/23 11:08 Review of Systems <Fernando Escudero PA-C - Last Filed: 10/05/23 11:39> Review of Systems Narrative: GENERAL: Denies chills, fatigue, malaise, fever, sweats. HEENT: Denies sinus pain, ear pain, sore throat, difficulty swallowing, dizziness. RESPIRATORY: Denies dyspnea, cough, wheezing, hemoptysis, sputum. CARDIOVASCULAR: Denies chest pain, palpitations, orthopnea, edema, GASTROINTESTINAL: Denies nausea, vomiting, abdominal pain, diarrhea, constipation, melena. : Denies dysuria, frequency, incontinence, hematuria, urinary retention. MUSCULOSKELETAL: Reports left knee pain SKIN: Denies rash, skin lesions, or other NEUROLOGIC: Denies weakness, headache, numbness, change in speech, confusion, seizures, incoordination. PSYCHIATRIC: No concerning psychosocial issues. 12 point review of systems is negative except for those stated above Patient History <Fernando Escudero PA-C - Last Filed: 10/05/23 11:39> Medical History Hyponatremia Lumbar stenosis with neurogenic claudication Facet arthropathy, lumbar Chronic lower back pain Foot pain, right Renal insufficiency Osteopenia GERD (gastroesophageal reflux disease) Scar tissue Hip problem Seasonal allergies Spinal stenosis (~2013) Measles Hearing loss (~1940) History of urinary incontinence Diabetes mellitus Hypertension Hyperlipidemia Surgical History Anesthesia Surgical procedure planned (~08/29/13) History of cataract removal with insertion of prosthetic lens (11/02/11) History of cataract removal with insertion of prosthetic lens (10/19/11) Status post colonoscopy Status post appendectomy Status post tubal ligation Family History Child Hypertension High cholesterol Mother Hypertension High cholesterol Sister Age: 85 Rheumatoid arthritis Brother Cancer Father No problems noted. Social History Smoking Status: Never smoker Smoking Status: Never smoker Substance Use Type: does not use Exam <Fernando Escudero PA-C - Last Filed: 10/05/23 11:39> Narrative Exam Narrative: GENERAL: Well-developed patient, in mild distress. HEAD: Atraumatic. Normocephalic. EYES: Pupils equal round and reactive. Extraocular motions intact. No scleral icterus. No injection or drainage. ENT: Nose without bleeding, purulent drainage. Throat without erythema, tonsillar hypertrophy or exudate. Airway patent. NECK: Trachea midline. Non tender EXTREMITIES: No tenderness to palpation to any part of the knee. No joint laxity. Neurovascularly intact throughout. No swelling to the left lower extremity. No pain with palpation to the posterior calf or popliteal space. NEURO: AOx3. SKIN: No rash or erythema of visible areas Initial Vital Signs Initial Vital Signs: Vital Signs Temperature 97.5 F L 10/05/23 10:28 Pulse Rate 70 10/05/23 10:28 Respiratory Rate 18 10/05/23 10:28 Blood Pressure 190/83 H 10/05/23 10:28 Pulse Oximetry 100 10/05/23 10:28 Oxygen Delivery Method Room Air 10/05/23 10:28 <Emiliana Lujan MD - Last Filed: 10/05/23 18:40> Initial Vital Signs Initial Vital Signs: Vital Signs Temperature 97.5 F L 10/05/23 10:28 Pulse Rate 70 10/05/23 10:28 Respiratory Rate 18 10/05/23 10:28 Blood Pressure 190/83 H 10/05/23 10:28 Pulse Oximetry 100 10/05/23 10:28 Oxygen Delivery Method Room Air 10/05/23 10:28 Course <Fernando Escudero PA-C - Last Filed: 10/05/23 11:39> Orders Ordered: ED Orders 10/05/23 10:33 XR knee LT 3V Stat Vital Signs Vital signs: Vital Signs - 8 hr 10/05/23 12:01 Pulse Rate 74 Respiratory Rate 12 Blood Pressure 177/78 H Pulse Oximetry 99 Oxygen Delivery Method Room Air <Emiliana Lujan MD - Last Filed: 10/05/23 18:40> Orders Ordered: ED Orders 10/05/23 10:33 XR knee LT 3V Stat Vital Signs Vital signs: Vital Signs - 8 hr 10/05/23 12:01 Pulse Rate 74 Respiratory Rate 12 Blood Pressure 177/78 H Pulse Oximetry 99 Oxygen Delivery Method Room Air [facility] - Extremity (Nontraumatic) <Fernando Escudero PA-C - Last Filed: 10/05/23 11:39> Imaging Data Extremity x-ray #1: Radiologist's Impression: [address] [address] XRay Report Signed Patient: Theresa Valdovinos MR#: [id number] : 1935 Acct:[id number] Age/Sex: 88 / F Date of Service: 10/05/23 Loc: ED Accession Number: [id number] Procedure: XR knee LT 3V Ordering Provider: Emiliana Lujan MD PROCEDURE: XR KNEE LT 3V INDICATIONS: pain/can't walk TECHNIQUE: 3 views of the knee were acquired. COMPARISON: None. FINDINGS: Bones: No fractures or dislocations. No suspicious bony lesions. Posterior femoral spur. Moderate to severe tricompartmental arthritic changes. Soft tissues: Moderate joint effusion. No suspicious soft tissue calcifications. Chondrocalcinosis is present. IMPRESSION: Prominent arthritic changes and mild effusion. No visualized acute fracture or dislocation. However, if clinical concern and/or pain persist, short interval imaging followup in 7-10 days is recommended, as occult injury cannot be definitively excluded. Dictated by: Zenobia Strong M.D. on 10/05/2023 at 11:29 Approved by: Zenobia Strong M.D. on 10/05/2023 at 11:30 [facility] Narrative Medical decision making narrative: ED course: This is a 88-year-old female presents to the emergency department due to acute left knee pain. X-rays showed no fractures but did show prominent arthritic changes as well as mild effusion. Suspect the pain is due to her chronic arthritis. Patient knee will be supported with the Darrell wrap and recommended follow up with the primary care provider for outpatient management. There was no joint stiffness concerning for septic arthritis, there was no joint laxity and no specific mechanism that would suggest any kind of ligament or meniscal injury. Recommended rest, ice, compression, elevation, and ibuprofen and Tylenol for pain control. No evidence of DVT on physical exam. CC: Left knee pain Complicating co-morbidities: None Data collected from: Previous notes Medical records reviewed: Patient was not been to this emergency department the past. Per her family medicine note history of type 2 diabetes, hypertension, hyperlipidemia, urinary incontinence. History chronic lower back pain and lumbar stenosis. Differential considered, but not limited to: Fracture, osteoarthritis, gout, septic arthritis, DVT, ligament injury Exam documented above, pertinent findings include: No pain with any kind of palpation and no joint laxity. No evidence of DVT on physical exam. Lab Test results independently reviewed as above. Pertinent findings: None obtained Imaging studies independently reviewed: X-ray shows prominent arthritic changes and effusion, no fracture Scores Used: None MIPS Elements: None Consultations: None Treatments: Darrell wrap to left knee Re-evaluations: None Discussion: Discussed plan with the patient was comfortable with the plan Diagnosis: Knee arthritis Disposition: see below, along with detailed discharge instructions that have been reviewed with patient as well as indications for ED re-evaluation and additional outpatient follow up Discharge Plan Departure Patient Disposition: Home Clinical Impression: Arthritis of knee Activity Restrictions/Additional Instructions: Thank you for coming to the [facility] Emergency Department today. As we discussed there were no fractures in the x-rays that we performed today. It did show prominent arthritic changes as we suspected. Please follow up with the primary care provider for outpatient management of this knee arthritis. I recommended ibuprofen and Tylenol as well as rest, ice, compression and elevation until the pain improves. Please return to the emergency department if you develop any significant new or worsening pain, numbness, or any other concerning signs or symptoms. I hope you feel better soon. Please follow up with your primary care provider within a week if your symptoms continue. If you do not have a primary care provider please contact the [facility] Resource line at [phone]. They will ask some questions about your medical history and help you get set up with a provider in the community. Prescriptions: No Action aspirin 81 MG tablet,delayed release (DR/EC) 81 mg PO QDAY Qty: 0 Fish Oil (Fish Oil 500 MG Softgel) 500 mg PO QDAY Qty: 0 loratadine [Claritin] 10 MG tablet 10 mg PO QDAY Qty: 0 cholecalciferol (vitamin D3) [Vitamin D3] 400 UNIT tablet,chewable 800 unit PO QDAY Qty: 0 (DME) Disabled Parking Permit See Rx Instructions .ROUTE .MEDSUPPLY Qty: 1 0RF Rx Instructions: Valid for 5 years losartan 100 mg tablet 100 mg .ROUTE .COMPLEX Qty: 90 3RF Rx Instructions: 100 mg once daily atorvastatin 20 mg tablet 20 mg PO DAILY Qty: 90 3RF gabapentin [Neurontin] 300 mg capsule 300 mg PO HS Qty: 90 1RF (DME) blood-glucose meter [Blood Glucose Monitoring] Kit See Rx Instructions .ROUTE .MEDSUPPLY Qty: 1 0RF Rx Instructions: One touch Verio IQ- use to check blood sugars once daily famotidine [Pepcid] PO (DME) Blood Glucose Test Strip See Rx Instructions .ROUTE .MEDSUPPLY Qty: 100 2RF Rx Instructions: Use One Touch Verio test strips with monitor to test blood sugars once daily. oxybutynin chloride 10 mg tablet extended release 24hr 10 mg PO BID Qty: 180 3RF amlodipine 5 mg tablet 5 mg PO DAILY calcium carbonate [Calcium 600] 600 mg calcium (1,500 mg) tablet 600 mg PO DAILY Referrals: Klever Moya, DO [Primary Care Provider] - Stand Alone Forms: Patient Portal/API ED Sign-out <Emiliana Lujan MD - Last Filed: 10/05/23 18:40> Cosign ED Attending Cosignature Attestation: I was immediately available in the department for consultation throughout this patient's visit. Emiliana Lujan MD
--- NOTE | 2023-10-05 11:23 | PC.NURSE ---
patient states that she woke up with leg pain in her left knee on the medial aspect of her knee. The pain does not radiate anywhere and she was able to partially bear weight but the pain is too much to bear full weight. She lives at home alone and her lives in a SNF. She was able to use her husbands walker and get around ok with that for one circumstance. She denies any other symptoms
[2023-10-05 12:01] VITALS: BP 177/78; PULSE 74; RESP 12; O2SAT 99
== END 2023-10-05 12:03 | disposition home or self-care (01) ==
PROVIDERS: Emergency Provider Physician Assistant Medical; Family Provider Family Medicine; PCP Family Medicine
DX: M17.12 Unilateral primary osteoarthritis, left knee (principal)
CPT/HCPCS: 73562; 99282

== ENCOUNTER → 2024-01-24 07:43 | Outpatient (CLI) | payer MEDICARE, SELFPAY ==
[2024-01-24 09:41] LABS: Alanine Aminotransferase 15 IU/L (<35); Albumin 3.9 g/dL (3.5-5.0); Albumin Globulin Ratio 1.5 (1.0-2.8); Alkaline Phosphatase 51 U/L (38-126); Aspartate Aminotransferase 24 IU/L (14-36); BUN Creatinine Ratio 26.4 (6-22); Bilirubin Total 0.7 mg/dL (0.2-1.3); Blood Urea Nitrogen 24 mg/dL (7-17); Calcium 10.5 mg/dL (8.4-10.2); Carbon Dioxide 25 mmol/L (22-32); Chloride 103 mmol/L (98-107); Estimated Glomerular Filt Rate > 60 mL/min (>60); Globulin 2.6 g/dL (1.7-4.1); Glucose 113 mg/dL (80-110); HEMOLYSIS < 15 (0-50); Potassium 5.3 mmol/L (3.4-5.1); Sodium 133 mmol/L (137-145); Total Protein 6.5 g/dL (6.3-8.2)
[2024-01-24 09:46] LABS: Hemoglobin A1C% w Est Avg Glu 5.8 % (4.0-6.0)
[2024-01-24 10:10] LABS: TSH w/ Reflex to FT4 3.82 uIU/mL (0.47-4.68)
== END ==
PROVIDERS: Family Provider Family Medicine; PCP Family Medicine; Referring Provider Family Medicine; Visit Provider Family Medicine
DX: E11.9 Type 2 diabetes mellitus without complications (principal); I10 Essential (primary) hypertension; E78.2 Mixed hyperlipidemia
CPT/HCPCS: 36415; 80053; 83036; 84443

== ENCOUNTER → 2024-03-09 13:13 | Outpatient (CLI) | payer MEDICARE, SELFPAY ==
--- NOTE | 2024-03-09 13:13 | DI.MG.S_ITS ---
BILATERAL DIGITAL SCREENING MAMMOGRAM 3D/2D WITH CAD: 03/09/2024 CLINICAL: Routine screening. Comparison is made to exams dated: 03/08/2023 mammogram, 03/05/2022 mammogram, and 02/13/2021 mammogram - [facility]. There are scattered areas of fibroglandular density (category b / 25%-50% glandular tissue). Current study was also evaluated with a Computer Aided Detection (CAD) system. There are benign calcifications in both breasts. There also is a biopsy clip in the right breast. No significant masses, calcifications, or other findings are seen in either breast. There has been no significant interval change. IMPRESSION: BENIGN There is no mammographic evidence of malignancy. A 1 year screening mammogram is recommended. This exam was interpreted at Station ID: [id number]. NOTE: For mammograms, a report in lay terms will be sent to the patient. Approximately 15% of breast malignancies will not be visualized mammographically. In the management of a palpable breast mass, a negative mammogram must not discourage biopsy of a clinically suspicious lesion. Electronically Signed By: Vincent levine/brittney:03/09/2024 16:39:56 letter sent: Normal Exam ACR BI-RADS Category 2: Benign
== END ==
PROVIDERS: Family Provider Family Medicine; PCP Family Medicine; Referring Provider Family Medicine; Visit Provider Family Medicine
DX: Z12.31 Encounter for screening mammogram for malignant neoplasm of breast (principal)
CPT/HCPCS: 77063; 77067

== ENCOUNTER → 2024-05-28 13:52 | Outpatient (CLI) | payer MEDICARE, SELFPAY ==
--- NOTE | 2024-05-28 13:56 | DI.RAD.S_ITS ---
PROCEDURE: XR DEXA AXIAL SKELETON INDICATIONS: ROUTINE COMPARISON: [facility], CR, XR DEXA AXIAL SKELETON, 08/17/2022, 10:59. FINDINGS: Lumbar Spine: Bone mineral density 1.284 g/cm2, T score 2.3. Since the most recent prior study, there has been no statistically significant change in bone mineral density. Left Hip: Bone mineral density 0.732 g/cm2, T score -1.7. Since the most recent prior study, there has been no statistically significant change in bone mineral density. Left Femoral Neck: Bone mineral density 0.560 g/cm2, T score -2.6. Right Hip: Bone mineral density is 0.656 g/cm2, T score -2.3. Since the most recent prior study, there has been a statistically significant decrease in bone mineral density by 5.9 %. Right Femoral Neck: Bone mineral density 0.626 g/cm2, T score -2.0. Fracture Risk Calculation (when applicable): FRAX score not reported due to T-score less than -2.5. (T score greater or equal to -1.0 to: NORMAL) (T score from -1.1 to -2.4: OSTEOPENIA) (T score less than or equal to -2.5: OSTEOPOROSIS) IMPRESSION: By WHO criteria, patient has osteoporosis. Follow-up guidelines as follows: Osteoporosis: Consider a repeat DEXA and Vertebral Fracture Assessment (VFA) exam in 2 years or sooner if medically necessary, to reassess this patient's status. Osteopenia: Consider a repeat DEXA in 2-3 years to reassess this patient's status, or if there is a new clinical indication. Normal: Consider a repeat DEXA in 5 years or sooner, or if there is a new clinical indication. All treatment decisions require clinical judgment and consideration of individual patient factors, including patient preferences, comorbidities, previous drug use, risk factors not captured in the FRAX model (e.g., frailty, falls, vitamin D deficiency, increased bone turnover, interval significant decline in bone density ) and possible under- or over-estimation of fracture risk by FRAX. In addition, the NOF Guide recommends that FDA-approved medical therapies be considered in postmenopausal women and men age >= 50 years with a: * Hip or vertebral (clinical or morphometric) fracture * T-score of <=-2.5 at the spine or hip * Ten-year fracture probability by FRAX of >= 3% for hip fracture or >=20% for major osteoporotic fracture. People with diagnosed cases of osteoporosis or at high risk for fracture should have regular bone mineral density tests. For patients eligible for Medicare, routine testing is allowed once every 2 years. The testing frequency can be increased to one year for patients who have rapidly progressing disease, those who are receiving or discontinuing medical therapy to restore bone mass, or have additional risk factors. Approved by: Vincent Khanna M.D. on 05/28/2024 at 21:15
--- NOTE | 2024-05-28 13:57 | DI.RAD.S_ITS ---
PROCEDURE: XR CERVICAL SPINE 4V OR 5V INDICATIONS: Anesthesia of skin TECHNIQUE: 5 views of the cervical spine acquired. COMPARISON: None. FINDINGS: Please note that the C7 vertebral body is obscured by overlying soft tissue. Otherwise, the vertebral body heights are preserved. Mild straightening of the cervical lordosis. Diffuse intervertebral disc height loss. Multilevel mild facet and uncinate arthropathy. The airway and epiglottic soft tissue contours are preserved. The C1 and C2 lateral masses are in symmetric alignment with the dens on the odontoid view. IMPRESSION: Mild cervical osteoarthrosis. Dictated by: Meir Hatch M.D. on 05/28/2024 at 20:51 Approved by: Meir Hatch M.D. on 05/28/2024 at 20:52
== END ==
LOC: RAD 13:56
PROVIDERS: Family Provider Family Medicine; PCP Family Medicine; Referring Provider Family Medicine; Visit Provider Family Medicine
DX: M81.0 Age-related osteoporosis without current pathological fracture; R20.0 Anesthesia of skin; M47.812 Spondylosis without myelopathy or radiculopathy, cervical region
CPT/HCPCS: 72050; 77080

== ENCOUNTER → 2024-06-26 07:42 | Outpatient (CLI) | payer MEDICARE, SELFPAY ==
[2024-06-26 09:26] LABS: BUN Creatinine Ratio 18.1 (6-22); Blood Urea Nitrogen 13 mg/dL (7-17); Calcium 9.8 mg/dL (8.4-10.2); Carbon Dioxide 24 mmol/L (22-32); Chloride 103 mmol/L (98-107); Estimated Glomerular Filt Rate > 60 mL/min (>60); Glucose 123 mg/dL (80-110); HEMOLYSIS < 15 (0-50); Phosphorous 3.7 mg/dL (2.8-4.1); Potassium 4.2 mmol/L (3.4-5.1); Sodium 134 mmol/L (137-145)
[2024-06-26 09:41] LABS: Vitamin D 25 Hydroxy (D3) 34.8 ng/mL (30.0-100.0)
[2024-06-28 07:08] LABS: Calcium 9.6 mg/dL (8.7-10.3); Parathyroid Hormone, Intact 52 pg/mL (15-65)
== END ==
PROVIDERS: Family Provider Family Medicine; PCP Family Medicine; Referring Provider Family Medicine; Visit Provider Family Medicine
DX: M81.0 Age-related osteoporosis without current pathological fracture (principal); E87.1 Hypo-osmolality and hyponatremia; N28.9 Disorder of kidney and ureter, unspecified
CPT/HCPCS: 36415; 80048; 82306; 82310; 83935; 83970; 84100

== ENCOUNTER → 2024-06-28 15:49 | Outpatient (CLI) | payer MEDICARE, SELFPAY ==
--- NOTE | 2024-06-28 15:50 | DI.ECHO.S_ITS ---
[place] [facility] : : [address] : [address] : : [id number] : : Phone: [phone] Echocardiogram Report + + :Name: CORAZON FRASER Study Date: 06/28/2024 Height: 62 in : :[facility] ReadingLocation: Weight: 149 lb : : Gender: Female BSA: 1.7 m2 : :: 1935 Age: 88 yrs BP: 181/81 mmHg: :Reason For Study: [place] : :Ordering Physician: PASCALE, : :KATIE Performed By: Lopez Bolden : :Referring: KATIE ASHRAF : + + Interpretation Summary Left ventricular wall thickness is mildly increased. The ejection fraction is estimated to be 65-70%. There is no hemodynamically significant valvular aortic stenosis. There is mild tricuspid regurgitation. The right ventricular systolic pressure is estimated to be at least 41 mmHg based on an estimated right atrial pressure of 3 mm Hg. Procedure: A two-dimensional transthoracic echocardiogram with color flow and Doppler was performed. The study quality was technically good. There is no prior echocardiogram noted for this patient. The patient was in normal sinus rhythm during the exam. Left Ventricle: The left ventricle is normal in size. Left ventricular wall thickness is mildly increased. There is no ventricular septal defect visualized. The ejection fraction is estimated to be 65-70%. There are no focal wall motion abnormalities. Diastolic parameters suggest probable normal left ventricular diastolic function and normal filling pressures. Right Ventricle: The right ventricle is normal in size and function. Atria: The left atrium is moderately dilated. Right atrial size is normal. There is no Doppler evidence for an interatrial shunt. Mitral Valve: There is mild mitral annular calcification. The mitral valve leaflets appear mildly thickened, but open well. The mitral valve leaflets are slightly calcified. There is trace mitral regurgitation. Aortic Valve: The aortic valve is trileaflet. The aortic valve is mildly calcified. There is mild aortic valve sclerosis. There is no hemodynamically significant valvular aortic stenosis. No aortic regurgitation is present. Tricuspid Valve: The tricuspid valve leaflets are thin and pliable. There is mild tricuspid regurgitation. The right ventricular systolic pressure is estimated to be at least 41 mmHg based on an estimated right atrial pressure of 3 mm Hg. Pulmonic Valve: The pulmonic valve leaflets are thin and pliable; valve motion is normal. There is trace pulmonic regurgitation. Great Vessels: The aortic root is normal size. The dimensions of the ascending aorta are normal. The pulmonary artery is normal size. The IVC is of normal diameter and collapses greater than 50% with a sniff. This suggests a low right atrial pressure of 3 mm Hg. Pericardium/ Pleura There is no pericardial effusion. There is no pleural effusion. MMode/2D Measurements & Calculations LVIDd: 4.7 cm LVOT diam: 2.0 cm LVIDs: 3.2 cm Ao root diam: 2.8 cm FS: 31.2 % asc Aorta Diam: 3.5 cm EPSS: 0.58 cm IVSd: 1.2 cm LVPWd: 1.3 cm LV hinojosa. diameter/BSA (cm/m^2): 2.8 LV sys. diameter/BSA (cm/m^2): 1.9 LA A2 area: 23.3 cm2 RA long axis: 4.8 cm LA A4 area: 23.0 cm2 RA area: 10.4 cm2 LA length (vol): 5.9 cm RA vol: 18.8 ml LA vol: 77.7 ml RA : 11.2 ml/m2 LA vol index: 46.1 ml/m2 IVC diam: 1.5 cm RVD1 (basal): 3.5 cm RVD2 (mid): 2.6 cm TAPSE: 2.7 cm Doppler Measurements & Calculations Ao V2 max: 160.3 cm/sec LVOT Max Brent: 112.7 cm/sec Ao V2 mean: 116.7 cm/sec LV V1 max P.1 mmHg Ao max P.3 mmHg LV V1 VTI: 32.5 cm Ao mean P.9 mmHg ORLIN(I,D): 2.4 cm2 Ao V2 VTI: 41.3 cm ORLIN(V,D): 2.1 cm2 sev ratio: 0.79 ORLIN indexed to BSA (cm^2/m^2): 1.4 MV E max brent: 95.0 cm/sec TR max brent: 307.2 cm/sec MV A max brent: 93.2 cm/sec TR max P.7 mmHg MV E/A: 1.0 PA V2 max: 91.2 cm/sec Med Peak E' Brent: 5.8 cm/sec PA V2 mean: 67.5 cm/sec E/E' med: 16.4 PA mean P.9 mmHg Lat Peak E' Brent: 6.6 cm/sec PA pr(Accel): 20.8 mmHg E/E' lat: 14.5 E/e' average: 15.4 MV dec time: 0.32 sec SVLVOT): 98.2 ml Reading Physician:05:56 PM
== END ==
PROVIDERS: Family Provider Family Medicine; PCP Family Medicine; Referring Provider Family Medicine; Visit Provider Family Medicine
DX: I08.3 Combined rheumatic disorders of mitral, aortic and tricuspid valves (principal); R01.1 Cardiac murmur, unspecified
CPT/HCPCS: 93306

== ENCOUNTER → 2024-07-19 13:46 | Outpatient (CLI) | payer MEDICARE, SELFPAY | PROVIDERS: Family Provider Family Medicine; PCP Family Medicine; Referring Provider Family Medicine; Visit Provider Family Medicine | DX: R20.0 Anesthesia of skin (principal) | CPT/HCPCS: 95886; 95910 ==

== ENCOUNTER → 2025-01-18 07:55 | Outpatient (CLI) | payer MEDICARE, SELFPAY ==
[2025-01-18 08:29] LABS: Hemoglobin A1C% w Est Avg Glu 6.4 % (4.0-6.0)
[2025-01-18 08:34] LABS: Alanine Aminotransferase 15 IU/L (<35); Albumin 4.5 g/dL (3.5-5.0); Albumin Globulin Ratio 1.3 (1.0-2.8); Alkaline Phosphatase 53 U/L (38-126); Blood Urea Nitrogen 19 mg/dL (7-17); Calcium 9.3 mg/dL (8.4-10.2); Carbon Dioxide 23 mmol/L (22-32); Chloride 101 mmol/L (98-107); Estimated Glomerular Filt Rate > 60 mL/min (>60); Globulin 3.4 g/dL (1.7-4.1); Glucose 119 mg/dL (70-99); HEMOLYSIS < 15 (0-50); Potassium 4.4 mmol/L (3.4-5.1); Sodium 135 mmol/L (137-145); Total Protein 7.9 g/dL (6.3-8.2)
[2025-01-18 09:10] LABS: TSH w/ Reflex to FT4 5.72 uIU/mL (0.47-4.68)
[2025-01-18 09:35] LABS: Free T4, Direct Thyroxine 0.88 ng/dL (0.78-2.19)
== END ==
PROVIDERS: Family Provider Family Medicine; PCP Family Medicine; Referring Provider Family Medicine; Visit Provider Family Medicine
DX: R73.03 Prediabetes (principal); I10 Essential (primary) hypertension; E78.2 Mixed hyperlipidemia
CPT/HCPCS: 36415; 80053; 83036; 84439; 84443

== ENCOUNTER 2025-02-18 12:49 | Emergency (ER) | payer MEDICARE, SELFPAY ==
[2025-02-18 12:52] VITALS: BP 130/61; PULSE 73; RESP 18; TEMP 36.3; O2SAT 100; BMI 27.4
--- NOTE | 2025-02-18 12:58 | DI.RAD.S_ITS ---
PROCEDURE: XR CHEST 1V INDICATIONS: Chest Pain TECHNIQUE: One view of the chest was acquired. COMPARISON: None. FINDINGS: Surgical changes and devices: None. Lungs and pleura: Bilateral interstitial opacities and perihilar airspace opacities. Trace right pleural effusion. Trace left pleural effusion. No pneumothorax. Mediastinum: Hiatal hernia with retrocardiac opacity. Bones and chest wall: No suspicious bony lesions. Overlying soft tissues appear unremarkable. IMPRESSION: Retrocardiac opacity concerning for developing pneumonia. Mild pulmonary edema with trace bilateral pleural effusions. Dictated by: Henry Oconnell M.D. on 02/18/2025 at 14:18 Approved by: Henry Oconnell M.D. on 02/18/2025 at 14:25
--- NOTE | 2025-02-18 13:03 | EKG_ITS ---
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
--- NOTE | 2025-02-18 13:12 | ED.CHESTPAIN ---
HPI - Chest Pain General Chief Complaint: Chest Pain Stated Complaint: chest pain x2 days Time Seen by Provider: 02/18/25 13:06 Source: patient Mode of arrival: Ambulatory History of Present Illness HPI narrative: Patient is an 89-year-old female to keep hyperlipidemia hypertension hypothyroid type 2 diabetes presenting today with chest pain. She reports that it really started yesterday, she was working in a garage sale the 2 days prior. She reports she had some substernal chest heaviness discomfort it was nonradiating. She has really noticed some shortness of breath. Shortness of breath happens at rest and with exertion she is not hypoxic denies any fever chills or cough. Her chest pain she describes it as a small twinge it is nonradiating no prior history of coronary artery disease. She went to clinic today who referred her to the emergency department. She is not actively having anymore chest heaviness really complaining of shortness of breath. Related Data Home Medications ?Medication ?Instructions ?Recorded ?Confirmed Fish Oil (Fish Oil 500 MG Softgel) 500 mg PO QDAY ##0 07/20/12 01/25/25 aspirin 81 mg tablet,delayed 81 mg PO QDAY ##0 07/20/12 01/25/25 release cholecalciferol (vitamin D3) 10 800 unit PO QDAY ##0 07/20/12 01/25/25 mcg (400 unit) chewable tablet (Vitamin D3) famotidine [Pepcid] PO 02/03/21 01/25/25 calcium carbonate (Calcium 600) 600 mg PO DAILY 03/28/23 01/25/25 amlodipine 10 mg tablet mg PO DAILY 07/10/24 01/25/25 losartan 25 mg tablet 12.5 mg PO DAILY 12/19/24 01/25/25 Previous Rx's ?Medication ?Instructions ?Recorded gabapentin 300 mg capsule 300 mg PO HS #90 caps 02/23/18 (Neurontin) blood-glucose meter (Blood Glucose #1 ea 04/17/20 Monitoring kit) Disabled Parking Permit #1 ea 08/19/20 blood sugar diagnostic (Blood #100 ea 05/13/22 Glucose Test strips) oxybutynin chloride 10 mg 10 mg PO BID #180 tabs 07/09/24 tablet,extended release 24 hr atorvastatin 20 mg tablet 20 mg PO DAILY #90 tabs 04/28/25 levothyroxine 50 mcg tablet 50 mcg PO DAILY #90 tabs 01/25/25 Allergies Allergy/AdvReac Type Severity Reaction Status Date / Time lisinopril AdvReac Mild COUGH Verified 02/18/25 12:52 Patient History Medical History Type 2 diabetes mellitus with diabetic mononeuropathy Acquired hypothyroidism Prediabetes Medicare annual wellness visit, subsequent History of squamous cell carcinoma Hyponatremia Lumbar stenosis with neurogenic claudication Facet arthropathy, lumbar Chronic lower back pain Foot pain, right Renal insufficiency Osteopenia GERD (gastroesophageal reflux disease) Scar tissue Hip problem Seasonal allergies Spinal stenosis (~2013) Measles Hearing loss (~194) History of urinary incontinence Diabetes mellitus Hypertension Hyperlipidemia Surgical History History of carpal tunnel surgery Anesthesia Surgical procedure planned (~08/29/13) History of cataract removal with insertion of prosthetic lens (11/02/11) History of cataract removal with insertion of prosthetic lens (10/19/11) Status post colonoscopy Status post appendectomy Status post tubal ligation Family History Child Hypertension High cholesterol Mother Hypertension High cholesterol Sister Age: 86 Rheumatoid arthritis Brother Cancer Father No problems noted. Social History Smoking Status: Never smoker Smoking Status: Never smoker Exam Initial Vital Signs Initial Vital Signs: Vital Signs Temperature 97.3 F L 02/18/25 12:52 Pulse Rate 73 02/18/25 12:52 Respiratory Rate 18 02/18/25 12:52 Blood Pressure 130/61 02/18/25 12:52 Pulse Oximetry 100 02/18/25 12:52 Oxygen Delivery Method Room Air 02/18/25 12:52 GENERAL: Alert very pleasant well-appearing 9-year-old female HEENT: Head atraumatic,EOMI, pupils reactive, face symmetric, [moist] mucous membranes CARDIOVASCULAR: Regular rate and rhythm without murmurs, rubs or gallops. RESPIRATORY: Breath sounds equal bilaterally, no wheezes rales or rhonchi. ABDOMEN: Soft, nontender. Normoactive bowel sounds all 4 quadrants. No guarding or rebound. EXTREMITIES: Normal range of motion, no clubbing or edema. Neurovascularly intact NEUROLOGICAL: Alert and oriented x4.Normal gait and speech. Cranial nerves II through XII grossly intact. SKIN: Warm, dry, no laceration, no petechiae, no rashes or lesions. Course Orders Ordered: ED Orders 02/18/25 12:58 XR chest 1V Stat EKG-12 Lead Stat 02/18/25 13:18 Complete Blood Count AUTO DIFF Stat Comprehensive Metabolic Panel Stat D Dimer Stat Lipase Stat Magnesium Stat NT-proBNP (BNP-Adult 18+) Stat PTT Partial Thromboplastin Raymond Stat Prothrombin Time INR Stat Troponin & CK Cardiac Panel Stat 02/18/25 13:25 EKG-12 Lead Routine 02/18/25 13:30 EKG-12 Lead Stat 02/18/25 14:03 Prothrombin Time INR Routine 02/18/25 14:15 PTT Partial Thromboplastin Raymond Q6H Discontinued Medications Aspirin (Aspirin 81 Mg Chew Tab) 324 mg PO NOW ONE Stop: 02/18/25 12:59 Last Admin: 02/18/25 13:34 Dose: 324 mg Documented By: Heparin Sodium (Porcine) (Heparin 5,000 Unit/Ml Vial) 4,000 unit 60 unit/kg (4000 unit) IV NOW ONE Stop: 02/18/25 14:02 Last Admin: 02/18/25 14:13 Dose: 4,000 unit Documented By: ABDULAZIZ Heparin Sodium/Dextrose (Heparin Drip) 25,000 unit in 500 mls @ 16.329 mls/hr IV CONT MAUREEN; Protocol Last Admin: 02/18/25 14:22 Dose: 12 units/kg/hr, 16.329 mls/hr Documented By: ABDULAZIZ Co-signed By: GENIE Vital Signs Vital signs: Vital Signs - 8 hr 02/18/25 12:52 02/18/25 13:48 02/18/25 13:50 Temperature 97.3 F L Pulse Rate 73 70 84 Respiratory Rate 18 38 H Blood Pressure 130/61 Pulse Oximetry 100 94 92 Oxygen Delivery Method Room Air Oxygen Flow Rate 02/18/25 13:50 02/18/25 14:00 02/18/25 14:00 Temperature Pulse Rate 69 Respiratory Rate 27 H Blood Pressure 118/72 115/66 Pulse Oximetry 94 Oxygen Delivery Method Oxygen Flow Rate 02/18/25 14:26 02/18/25 14:26 Temperature Pulse Rate 71 Respiratory Rate 23 Blood Pressure 132/91 H Pulse Oximetry 92 Oxygen Delivery Method Nasal Cannula Oxygen Flow Rate 3 MDM - Chest Pain Lab Data 02/18/25 13:18 02/18/25 13:18 Labs: Lab Results 02/18/25 Range/Units 13:18 WBC 13.1 H (4.5-11.0) X10^3/uL RBC 4.42 (4.0-5.2) X10^6/uL Hgb 12.7 (12.0-16.0) g/dL Hct 37.6 (36-46) % MCV 85.1 (80-100) fL MCH 28.7 (26-34) PG MCHC 33.7 (30-36) % RDW 14.3 (11.6-14.8) % Plt Count 244 (150-400) X10^3/uL Neut % (Auto) 83.2 H (50-75) % Lymph % (Auto) 9.6 L (25-40) % [place] % (Auto) 6.5 (3-14) % Eos % (Auto) 0.3 L (2-4) % Baso % (Auto) 0.4 (0-2) % Neut # (Auto) 36074 H (7613-8786) /uL Lymph # (Auto) 1300 (1553-3123) /uL [place] # (Auto) 900 (0-900) /uL Eos # (Auto) 0 (0-450) /uL Baso # (Auto) 100 (0-100) /uL PT 10.8 (9.4-12.5) SECONDS INR 1.0 (0.9-1.3) APTT 25 L (25.1-36.5) SECONDS D-Dimer 1614 H (<500) ng/ml Sodium 127 L (137-145) mmol/L Potassium 4.4 (3.4-5.1) mmol/L Chloride 95 L (98-107) mmol/L Carbon Dioxide 18 L (22-32) mmol/L BUN 25 H (7-17) mg/dL Creatinine 0.88 (0.52-1.04) mg/dL Estimated GFR > 60 (>60) mL/min BUN/Creatinine Ratio 28.4 H (6-22) Glucose 158 H (70-99) mg/dL Calcium 9.5 (8.4-10.2) mg/dL Magnesium 1.8 (1.6-2.3) mg/dL Total Bilirubin 1.4 H (0.2-1.3) mg/dL AST 117 H (14-36) IU/L ALT 39 H (<35) IU/L Alkaline Phosphatase 60 (38-126) U/L Total Creatine Kinase 691 H (30-135) U/L Troponin I 8.430 H* (0.01-0.034) ng/mL NT-Pro-B Natriuret Pep 47055 H (<450) pg/mL Total Protein 8.1 (6.3-8.2) g/dL Albumin 4.5 (3.5-5.0) g/dL Globulin 3.6 (1.7-4.1) g/dL Albumin/Globulin Ratio 1.3 (1.0-2.8) Lipase 36 (23-300) U/L Imaging Data Chest x-ray: My Impression: No pneumothorax Radiologist's Impression: PROCEDURE: XR CHEST 1V INDICATIONS: Chest Pain TECHNIQUE: One view of the chest was acquired. COMPARISON: None. FINDINGS: Surgical changes and devices: None. Lungs and pleura: Bilateral interstitial opacities and perihilar airspace opacities. Trace right pleural effusion. Trace left pleural effusion. No pneumothorax. Mediastinum: Hiatal hernia with retrocardiac opacity. Bones and chest wall: No suspicious bony lesions. Overlying soft tissues appear unremarkable. IMPRESSION: Retrocardiac opacity concerning for developing pneumonia. Mild pulmonary edema with trace bilateral pleural effusions. Dictated by: Henry Oconnell M.D. on 02/18/2025 at 14:18 Approved by: Henry Oconnell M.D. on 02/18/2025 at 14:25 ECG Data Attestation: I personally reviewed and interpreted this ECG as follows: Interpretation: Sinus rhythm rate 69 AK interval 212 QRS [address] elevation lead [address] depression in lead 1 no prior EKGs Q-wave noted in septal leads MDM Narrative Medical decision making narrative: [facility] CC: Chest pain Complicating co-morbidities: Hypertension hyperlipidemia, type 2 diabetes gurney hypothyroid Data collected from: [ ] Medical records reviewed: Prior PCP note Differential considered: Acute coronary syndrome CHF pulmonary embolus Exam documented above, pertinent findings include: Alert very well-appearing 89-year-old female appears in no acute distress no peripheral Lab Test results independently reviewed as above. Pertinent findings: Troponin 8.430 [id number] Mild hyponatremia sodium 127 bicarbonate pain BUN 25 creatinine 0.8 Independently reviewed EKG as above ST-elevation lead 3 with some lateral depression in 1 and aVL she has Q-waves in septal leads V1 V2 and V3 no priors to compare certainly concerning for FL Repeat EKGs shows lots of artifact with similar Imaging studies independently reviewed: Chest x-ray: Retrocardiac opacity possible developing pneumonia Consultations: 1400 Dr. Boss said to transfer to [facility] 14[address] Dr. Xie, ED dark accepts patient Treatments: Heparin aspirin Re-evaluations: Patient remains chest pain-free Discussion: Patient is a 81-year-old female history of hypertension hyperlipidemia presenting today with chest pain that started yesterday. She has had some increasing shortness of breath with exertion she does not have any chest pain now. She does have some EKGs findings concerning for ACS and an elevated troponin. Arrangements have been made to transfer her to [facility] for STEMI. Core Measures AMI core measures followed: Yes Critical Care Time Critical Care Time Critical Care Time: Yes Total Critical Care Time: 35 Attestation: The high probability of a clinically significant, sudden or life threatening deterioration of the [cardiovascular] system(s) required my full and direct attention, intervention and personal management. The aggregate critical care time was 35 minutes. This time is in addition to time spent performing reported procedures but includes the following: [x] Data Review and interpretation [x] Patient assessment and monitoring of vital signs [x] Documentation [x] Medication orders and management Discharge Plan Departure Patient Disposition: [facility] Clinical Impression: ST elevation (STEMI) myocardial infarction Prescriptions: No Action aspirin 81 MG tablet,delayed release (DR/EC) 81 mg PO QDAY Qty: 0 Fish Oil (Fish Oil 500 MG Softgel) 500 mg PO QDAY Qty: 0 cholecalciferol (vitamin D3) [Vitamin D3] 400 UNIT tablet,chewable 800 unit PO QDAY Qty: 0 (DME) Disabled Parking Permit See Rx Instructions .ROUTE .MEDSUPPLY Qty: 1 0RF Rx Instructions: Valid for 5 years oxybutynin chloride 10 mg tablet extended release 24hr 10 mg PO BID Qty: 180 3RF atorvastatin 20 mg tablet 20 mg PO DAILY Qty: 90 3RF gabapentin [Neurontin] 300 mg capsule 300 mg PO HS Qty: 90 1RF (DME) blood-glucose meter [Blood Glucose Monitoring] Kit See Rx Instructions .ROUTE .MEDSUPPLY Qty: 1 0RF Rx Instructions: One touch Verio IQ- use to check blood sugars once daily famotidine [Pepcid] PO amlodipine 10 mg tablet PO DAILY (DME) Blood Glucose Test Strip See Rx Instructions .ROUTE .MEDSUPPLY Qty: 100 2RF Rx Instructions: Use One Touch Verio test strips with monitor to test blood sugars once daily. levothyroxine 50 mcg tablet 50 mcg PO DAILY Qty: 90 3RF losartan 25 mg tablet 12.5 mg PO DAILY calcium carbonate [Calcium 600] 600 mg calcium (1,500 mg) tablet 600 mg PO DAILY Referrals: Klever oMya DO [Primary Care Provider, Family Practice]
--- NOTE | 2025-02-18 13:24 | EKG_ITS ---
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
--- NOTE | 2025-02-18 13:25 | EKG_ITS ---
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
[2025-02-18 13:26] LABS: Add Manual Diff / Slide Review NO; Hematocrit 37.6 % (36-46); Hemoglobin 12.7 g/dL (12.0-16.0); Lymphocytes Absolute Auto 1300 /uL (1100-4500); Mean Corpuscular HGB Conc 33.7 % (30-36); Mean Corpuscular Hemoglobin 28.7 PG (26-34); Mean Corpuscular Volume 85.1 fL (80-100); Platelet Count 244 X10^3/uL (150-400)
--- NOTE | 2025-02-18 13:28 | PC.NURSE ---
Pt o2 sats 88% on RA. Placed on 2L per NC. sats improved to 90%. Increased O2 to 3L, sats 92%. Dr Mckeon notified.
[2025-02-18] MEDS: ASPIRIN 81 MG CHEW TAB 324 MG PO (13:34)
[2025-02-18 13:39] LABS: INR 1.0 (0.9-1.3); Prothrombin Time 10.8 SECONDS (9.4-12.5)
[2025-02-18 13:41] LABS: PTT Partial Thromboplastin Tim 25 SECONDS (25.1-36.5)
[2025-02-18 13:43] LABS: Alanine Aminotransferase 39 IU/L (<35); Albumin 4.5 g/dL (3.5-5.0); Albumin Globulin Ratio 1.3 (1.0-2.8); Alkaline Phosphatase 60 U/L (38-126); Blood Urea Nitrogen 25 mg/dL (7-17); Calcium 9.5 mg/dL (8.4-10.2); Carbon Dioxide 18 mmol/L (22-32); Chloride 95 mmol/L (98-107); Creatine Kinase 691 U/L (30-135); Estimated Glomerular Filt Rate > 60 mL/min (>60); Globulin 3.6 g/dL (1.7-4.1); Glucose 158 mg/dL (70-99); HEMOLYSIS < 15 (0-50); Lipase 36 U/L (23-300); Magnesium 1.8 mg/dL (1.6-2.3); Potassium 4.4 mmol/L (3.4-5.1); Sodium 127 mmol/L (137-145); Total Protein 8.1 g/dL (6.3-8.2)
[2025-02-18 13:48] VITALS: PULSE 70; O2SAT 94
[2025-02-18 13:50] VITALS: BP 118/72; PULSE 84; RESP 38; O2SAT 92
[2025-02-18 13:54] LABS: NT-proBNP (BNP-Adult 18+) 10800 pg/mL (<450)
[2025-02-18 13:56] LABS: Troponin I 8.430 ng/mL (0.01-0.034)
[2025-02-18 14:00] VITALS: BP 115/66; PULSE 69; RESP 27; O2SAT 94
--- NOTE | 2025-02-18 14:03 | PC.NURSE ---
Troponin level reported to Linda. Checked on patient, she is resting in stretcher, denies pain. Primary Rn updated.
[2025-02-18] MEDS: HEPARIN 5,000 UNIT/ML VIAL 4000 UNIT IV (14:13)
[2025-02-18] MEDS: HEPARIN DRIP 25,000 UNIT/500 ML IV.SOLN 16.329 UNIT IV (14:22)
[2025-02-18 14:26] VITALS: BP 132/91; PULSE 71; RESP 23; O2SAT 92
== END 2025-02-18 14:37 | disposition short-term general hospital (02) ==
PROVIDERS: Emergency Provider Emergency Medicine; Family Provider Family Medicine; PCP Family Medicine
DX: I21.3 ST elevation (STEMI) myocardial infarction of unspecified site (principal); R06.02 Shortness of breath; R07.9 Chest pain, unspecified
CPT/HCPCS: 71045; 80053; 82550; 83690; 83735; 83880; 84484; 85025; 85379; 85610; 85730; 93005; 96374; 99284; 99285; J1644

== ENCOUNTER 2025-03-10 23:12 | Inpatient (IN) | payer MEDICARE, SELFPAY ==
[2025-03-10 23:13] VITALS: O2SAT 87
[2025-03-10 23:14] VITALS: BP 154/87; PULSE 98; RESP 26; O2SAT 95
[2025-03-10 23:17] VITALS: BP 154/87; PULSE 98; RESP 32; TEMP 36.6; O2SAT 94; BMI 27.4
--- NOTE | 2025-03-10 23:17 | EKG_ITS ---
[address] [address] Test Date: 2025-03-10 Pat Name: Theresa Valdovinos Department: Room: Gender: Female Computer Bookkeeper: ROBSON : 1935 Requested By: Order Number: [id number] Reading MD: Dalton Omalley Measurements Intervals [place] Rate: 92 P: 40 [place]: 202 QRS: 86 QRSD: 84 T: -81 QT: 342 QTc: 422 Interpretive Statements Normal sinus rhythm Possible Inferior infarct , age undetermined Anterolateral infarct , age undetermined Electronically Signed On 03-13-2025 8:05:19 PDT by Dalton Omalley
[2025-03-10 23:30] VITALS: PULSE 89; RESP 21; O2SAT 97
--- NOTE | 2025-03-10 23:33 | ED.SOB ---
HPI - SOB/Dyspnea General Chief Complaint: Shortness of Breath/Dyspnea Stated Complaint: SOB Time Seen by Provider: 03/10/25 23:29 Source: patient and EMS Mode of arrival: EMS Limitations: no limitations History of Present Illness HPI Narrative: 81-year-old female with history of hypertension, hyperlipidemia, type 2 diabetes mellitus who was seen here on February 18, 2025 for what ended up being an NSTEMI. She was transferred to [facility] for possible angiogram and was found to have a CVA that could potentially be intervened upon and thus was transferred to [facility]. Today she presents here via paramedics from her private home for shortness of breath. Currently she claims that her shortness of breath has improved after receiving 3 L of nasal cannula oxygen. Related Data Home Medications ?Medication ?Instructions ?Recorded ?Confirmed famotidine 20 mg PO DAILY 02/03/21 03/11/25 calcium carbonate (Calcium 600) 600 mg PO DAILY 03/28/23 03/11/25 losartan 25 mg tablet 12.5 mg PO DAILY 12/19/24 03/11/25 atorvastatin 80 mg tablet 80 mg PO DAILY 03/11/25 03/11/25 clopidogrel 75 mg tablet 75 mg PO DAILY 03/11/25 03/11/25 empagliflozin 10 mg tablet 10 mg PO DAILY 03/11/25 03/11/25 (Jardiance) metoprolol succinate 25 mg 12.5 mg PO DAILY 03/11/25 03/11/25 tablet,extended release 24 hr Previous Rx's ?Medication ?Instructions ?Recorded gabapentin 300 mg capsule 300 mg PO HS #90 caps 02/23/18 (Neurontin) blood-glucose meter (Blood Glucose #1 ea 04/17/20 Monitoring kit) Disabled Parking Permit #1 ea 08/19/20 blood sugar diagnostic (Blood #100 ea 05/13/22 Glucose Test strips) levothyroxine 50 mcg tablet 50 mcg PO DAILY #90 tabs 01/25/25 Allergies Allergy/AdvReac Type Severity Reaction Status Date / Time lisinopril AdvReac Mild COUGH Verified 03/10/25 23:17 Review of Systems Review of Systems ROS Unobtainable: All systems reviewed & are unremarkable except as noted in HPI and below Patient History Medical History Type 2 diabetes mellitus with diabetic mononeuropathy Acquired hypothyroidism Prediabetes Medicare annual wellness visit, subsequent History of squamous cell carcinoma Hyponatremia Lumbar stenosis with neurogenic claudication Facet arthropathy, lumbar Chronic lower back pain Foot pain, right Renal insufficiency Osteopenia GERD (gastroesophageal reflux disease) Scar tissue Hip problem Seasonal allergies Spinal stenosis (~2013) Measles Hearing loss (~194) History of urinary incontinence Diabetes mellitus Hypertension Hyperlipidemia Surgical History History of carpal tunnel surgery Anesthesia Surgical procedure planned (~08/29/13) History of cataract removal with insertion of prosthetic lens (11/02/11) History of cataract removal with insertion of prosthetic lens (10/19/11) Status post colonoscopy Status post appendectomy Status post tubal ligation Family History Child Hypertension High cholesterol Mother Hypertension High cholesterol Sister Age: 86 Rheumatoid arthritis Brother Cancer Father No problems noted. Exam Narrative Exam Narrative: General: Patient appears to be in no acute distress, acting appropriately , on 3 l of nc o2 Head: normocephalic, atraumatic, HEENT: Pupils equal round reactive, eyes tracking well, neck supple, no JVD Heart: regular rate and rhythm, no murmurs, rubs, or gallops heard Lungs: clear to auscultation, no adventitious sounds Abdomen: soft , nontender, nondistended, positive bowel sounds Neurological: no focal neurological signs, moving all extremities well, alert and oriented x3, Psych: good judgment ,good insight, mood is normal. Initial Vital Signs Initial Vital Signs: Vital Signs Pulse Oximetry 87 L 03/10/25 23:13 Oxygen Delivery Method Room Air 03/10/25 23:13 Course Orders Ordered: ED Orders 03/10/25 23:17 EKG-12 Lead Routine 03/10/25 23:19 RT Consult Eval and Treat NOW 03/10/25 23:38 XR chest 1V Stat Complete Blood Count AUTO DIFF Stat Comprehensive Metabolic Panel Stat Lipase Stat Magnesium Stat NT-proBNP (BNP-Adult 18+) Stat PTT Partial Thromboplastin Raymond Stat Prothrombin Time INR Stat Troponin & CK Cardiac Panel Stat 03/11/25 02:10 Troponin I Stat Discontinued Medications Furosemide (Furosemide 40 Mg/4 Ml Vial) 20 mg IV NOW ONE Stop: 03/11/25 00:13 Last Admin: 03/11/25 00:34 Dose: 20 mg Reevaluation(s) Reevaluation #1: Upon re-evaluation, patient's shortness of breath is improved with 3 L of nasal cannula. Time: 00:14 Reevaluation #2: Upon re-evaluation, patient still has not urinated and so we will give an additional 20 mg IV Lasix. Consultations Consultation #1: consult with Dr. Means hospitalist made who accepted the patient for a CHF exacerbation and placed under observation. Vital Signs Vital signs: Vital Signs - 8 hr 03/10/25 23:13 03/10/25 23:14 03/10/25 23:14 Temperature Pulse Rate 98 H Respiratory Rate 26 H Blood Pressure 154/87 H Pulse Oximetry 87 L 95 Oxygen Delivery Method Room Air Nasal Cannula Oxygen Flow Rate 2 03/10/25 23:17 03/10/25 23:30 03/11/25 00:00 Temperature 97.9 F Pulse Rate 98 H 89 91 H Respiratory Rate 32 H 21 26 H Blood Pressure 154/87 H Pulse Oximetry 94 97 97 Oxygen Delivery Method Nasal Cannula Oxygen Flow Rate 4 03/11/25 00:01 03/11/25 00:01 03/11/25 00:30 Temperature Pulse Rate 91 H 89 Respiratory Rate 28 H 26 H Blood Pressure 157/82 H Pulse Oximetry 97 97 Oxygen Delivery Method Oxygen Flow Rate 03/11/25 00:31 03/11/25 00:31 03/11/25 01:00 Temperature Pulse Rate 90 91 H Respiratory Rate 23 25 H Blood Pressure 150/94 H Pulse Oximetry 96 96 Oxygen Delivery Method Oxygen Flow Rate MDM - SOB/Dyspnea Lab Data 03/11/25 00:09 03/11/25 00:09 Labs: Lab Results 03/11/25 Range/Units 00:09 WBC 14.4 H (4.5-11.0) X10^3/uL RBC 4.08 (4.0-5.2) X10^6/uL Hgb 11.5 L (12.0-16.0) g/dL Hct 34.7 L (36-46) % MCV 85.0 (80-100) fL MCH 28.1 (26-34) PG MCHC 33.1 (30-36) % RDW 15.2 H (11.6-14.8) % Plt Count 341 (150-400) X10^3/uL Neut % (Auto) 89.9 H (50-75) % Lymph % (Auto) 5.7 L (25-40) % [place] % (Auto) 3.8 (3-14) % Eos % (Auto) 0.0 L (2-4) % Baso % (Auto) 0.6 (0-2) % Neut # (Auto) 47123 H (8721-3538) /uL Lymph # (Auto) 800 L (9367-0555) /uL [place] # (Auto) 600 (0-900) /uL Eos # (Auto) 0 (0-450) /uL Baso # (Auto) 100 (0-100) /uL PT 11.6 (9.4-12.5) SECONDS INR 1.0 (0.9-1.3) APTT 23 L (25.1-36.5) SECONDS Sodium 129 L (137-145) mmol/L Potassium 4.3 (3.4-5.1) mmol/L Chloride 100 (98-107) mmol/L Carbon Dioxide 21 L (22-32) mmol/L BUN 16 (7-17) mg/dL Creatinine 0.72 (0.52-1.04) mg/dL Estimated GFR > 60 (>60) mL/min BUN/Creatinine Ratio 22.2 H (6-22) Glucose 153 H (70-99) mg/dL Calcium 9.1 (8.4-10.2) mg/dL Magnesium 1.9 (1.6-2.3) mg/dL Total Bilirubin 1.1 (0.2-1.3) mg/dL AST 68 H (14-36) IU/L ALT 81 H (<35) IU/L Alkaline Phosphatase 149 H (38-126) U/L Total Creatine Kinase 88 (30-135) U/L Troponin I 0.126 H* (0.01-0.034) ng/mL NT-Pro-B Natriuret Pep 40157 H (<450) pg/mL Total Protein 7.6 (6.3-8.2) g/dL Albumin 4.1 (3.5-5.0) g/dL Globulin 3.5 (1.7-4.1) g/dL Albumin/Globulin Ratio 1.2 (1.0-2.8) Lipase 105 (23-300) U/L ECG Data Interpretation: EKG shows a normal axis, normal sinus rhythm, 92 beats per minute, normal IN intervals possible inferior infarct and anterolateral infarct undetermined. previous ekg showed following: Sinus rhythm with 1st degree AV block with premature atrial complexes Septal infarct , age undetermined Possible Inferior infarct , age undetermined ST & T wave abnormality, consider lateral ischemia MDM Narrative Medical decision making narrative: 81-year-old female with a history of a recent NSTEMI and CVA comes in with shortness of breath and is found to be in a CHF exacerbation picture. Patient recent echocardiogram showed an EF of 35-40%. She was given a total of 40 mg IV Lasix but is still requiring 3 L of O2 nasal cannula. After discussion with hospitalist, the patient will be placed under observation for potential further diuresis. Discharge Plan Departure Patient Disposition: Admitted as Observation Clinical Impression: Acute exacerbation of CHF (congestive heart failure) Qualifiers: Heart failure type: systolic Qualified Code(s): I50.23 - Acute on chronic systolic (congestive) heart failure
--- NOTE | 2025-03-10 23:38 | DI.RAD.S_ITS ---
PROCEDURE: XR CHEST 1V INDICATIONS: Chest Pain TECHNIQUE: One view of the chest was acquired. COMPARISON: [facility], CT, CT ANGIO CHEST PE, 02/18/2025, 17:04. [facility], CR, XR CHEST 1V, 02/18/2025, 13:12. FINDINGS: Surgical changes and devices: None. Lungs and pleura: Small bilateral pleural effusions. Prominent pulmonary markings. Mediastinum: Mediastinal contours appear unchanged. Heart size is prominent. Bones and chest wall: No suspicious bony lesions. Overlying soft tissues appear unremarkable. IMPRESSION: Small bilateral pleural effusions. Suspect fluid overload/CHF. Dictated by: Vishal Martínez M.D. on 03/11/2025 at 1:05 Approved by: Vishal Martínez M.D. on 03/11/2025 at 1:06
[2025-03-11] VITALS (43 sets, daily range): BP systolic 110–157; BP diastolic 57–94; PULSE 20–91; RESP 16–31; TEMP 36.7–37.2; O2SAT 90–99; BMI 27.4
[2025-03-11 00:21] LABS: Add Manual Diff / Slide Review NO; Hematocrit 34.7 % (36-46); Hemoglobin 11.5 g/dL (12.0-16.0); INR 1.0 (0.9-1.3); Lymphocytes Absolute Auto 800 /uL (1100-4500); Mean Corpuscular HGB Conc 33.1 % (30-36); Mean Corpuscular Hemoglobin 28.1 PG (26-34); Mean Corpuscular Volume 85.0 fL (80-100); Platelet Count 341 X10^3/uL (150-400); Prothrombin Time 11.6 SECONDS (9.4-12.5)
[2025-03-11 00:24] LABS: PTT Partial Thromboplastin Tim 23 SECONDS (25.1-36.5)
[2025-03-11 00:26] LABS: Alanine Aminotransferase 81 IU/L (<35); Albumin 4.1 g/dL (3.5-5.0); Albumin Globulin Ratio 1.2 (1.0-2.8); Alkaline Phosphatase 149 U/L (38-126); Blood Urea Nitrogen 16 mg/dL (7-17); Calcium 9.1 mg/dL (8.4-10.2); Carbon Dioxide 21 mmol/L (22-32); Chloride 100 mmol/L (98-107); Creatine Kinase 88 U/L (30-135); Estimated Glomerular Filt Rate > 60 mL/min (>60); Globulin 3.5 g/dL (1.7-4.1); Glucose 153 mg/dL (70-99); HEMOLYSIS 50 (0-50); Lipase 105 U/L (23-300); Magnesium 1.9 mg/dL (1.6-2.3); Potassium 4.3 mmol/L (3.4-5.1); Sodium 129 mmol/L (137-145); Total Protein 7.6 g/dL (6.3-8.2)
[2025-03-11] MEDS: FUROSEMIDE 40 MG/4 ML VIAL 20 MG IV ×2 (00:34→01:59)
[2025-03-11 00:37] LABS: NT-proBNP (BNP-Adult 18+) 17900 pg/mL (<450)
[2025-03-11 00:39] LABS: Troponin I 0.126 ng/mL (0.01-0.034)
[2025-03-11 02:31] LABS: Troponin I 0.099 ng/mL (0.01-0.034)
--- NOTE | 2025-03-11 02:55 | PM.HP.1 ---
History of Present Illness History of Present Illness Date Patient Seen: 03/11/25 Time Patient Seen: 05:30 Chief complaint: SOB Narrative: 89 y/o with PMH of HFrEF, HTN, recent NSTEMI and CVA, presented with progressive dyspnea. She was recently transferred from [facility] to [facility] with NSTEMI for an angiogram and from there to [facility] with a stroke, for possible intervention. She did not have it and was discharged home . On admission to ED hypoxic and congested, with evidence of CHF exacerbation. Elevated but then down-trending troponin. Treated with IV diuretic and admitted to telemetry for monitored diuresis. [facility] Medical History Type 2 diabetes mellitus with diabetic mononeuropathy Acquired hypothyroidism Prediabetes Medicare annual wellness visit, subsequent History of squamous cell carcinoma Hyponatremia Lumbar stenosis with neurogenic claudication Facet arthropathy, lumbar Chronic lower back pain Foot pain, right Renal insufficiency Osteopenia GERD (gastroesophageal reflux disease) Scar tissue Hip problem Seasonal allergies Spinal stenosis (~2013) Measles Hearing loss (~1939) History of urinary incontinence Diabetes mellitus Hypertension Hyperlipidemia Surgical History History of carpal tunnel surgery Anesthesia Surgical procedure planned (~08/29/13) History of cataract removal with insertion of prosthetic lens (11/02/11) History of cataract removal with insertion of prosthetic lens (10/19/11) Status post colonoscopy Status post appendectomy Status post tubal ligation Family History Child Hypertension High cholesterol Mother Hypertension High cholesterol Sister Age: 86 Rheumatoid arthritis Brother Cancer Father No problems noted. Meds Home Medications and Allergies Home Medications ?Medication ?Instructions ?Recorded ?Confirmed ?Type gabapentin 300 mg capsule 300 mg PO HS #90 caps 02/23/18 03/11/25 Rx (Neurontin) blood-glucose meter (Blood Glucose #1 ea 04/17/20 03/11/25 Rx Monitoring kit) Disabled Parking Permit #1 ea 08/19/20 03/11/25 Rx famotidine 20 mg PO DAILY 02/03/21 03/11/25 History blood sugar diagnostic (Blood #100 ea 05/13/22 03/11/25 Rx Glucose Test strips) calcium carbonate (Calcium 600) 600 mg PO DAILY 03/28/23 03/11/25 History losartan 25 mg tablet 12.5 mg PO DAILY 12/19/24 03/11/25 History levothyroxine 50 mcg tablet 50 mcg PO DAILY #90 tabs 01/25/25 03/11/25 Rx atorvastatin 80 mg tablet 80 mg PO DAILY 03/11/25 03/11/25 History clopidogrel 75 mg tablet 75 mg PO DAILY 03/11/25 03/11/25 History empagliflozin 10 mg tablet 10 mg PO DAILY 03/11/25 03/11/25 History (Jardiance) metoprolol succinate 25 mg 12.5 mg PO DAILY 03/11/25 03/11/25 History tablet,extended release 24 hr Allergies Allergy/AdvReac Type Severity Reaction Status Date / Time lisinopril AdvReac Mild COUGH Verified 03/10/25 23:17 Review of Systems Review of Systems Narrative: General - generalized weakness, w/o fever or chills CVS - w/o chest pain or pressure, w/o palpitations, w/o legs edema. Short of breath. RS - SOB, w/o wheezing or cough, w/o pleursy GI - negative Urogenital - w/o dysuria, chronic incontinence Neuro - w/o focal weakness or numbness Exam Vital Signs (past 8 hours): - 03/10/25 23:13 03/10/25 23:14 03/10/25 23:14 Temperature Pulse Rate 98 H Respiratory Rate 26 H Blood Pressure 154/87 H Pulse Oximetry 87 L 95 Oxygen Delivery Method Room Air Nasal Cannula Oxygen Flow Rate 2 03/10/25 23:17 03/10/25 23:30 03/11/25 00:00 Temperature 97.9 F Pulse Rate 98 H 89 91 H Respiratory Rate 32 H 21 26 H Blood Pressure 154/87 H Pulse Oximetry 94 97 97 Oxygen Delivery Method Nasal Cannula Oxygen Flow Rate 4 03/11/25 00:01 03/11/25 00:01 03/11/25 00:30 Temperature Pulse Rate 91 H 89 Respiratory Rate 28 H 26 H Blood Pressure 157/82 H Pulse Oximetry 97 97 Oxygen Delivery Method Oxygen Flow Rate 03/11/25 00:31 03/11/25 00:31 03/11/25 01:00 Temperature Pulse Rate 90 91 H Respiratory Rate 23 25 H Blood Pressure 150/94 H Pulse Oximetry 96 96 Oxygen Delivery Method Oxygen Flow Rate 03/11/25 01:01 03/11/25 01:01 03/11/25 01:30 Temperature Pulse Rate 88 79 Respiratory Rate 18 25 H Blood Pressure 151/64 H Pulse Oximetry 96 96 Oxygen Delivery Method Oxygen Flow Rate 03/11/25 01:30 03/11/25 02:00 03/11/25 02:01 Temperature Pulse Rate 74 78 Respiratory Rate 24 24 Blood Pressure 150/75 H Pulse Oximetry 96 97 Oxygen Delivery Method Oxygen Flow Rate 03/11/25 02:01 03/11/25 02:30 03/11/25 02:30 Temperature Pulse Rate 69 Respiratory Rate 19 Blood Pressure 139/78 136/62 Pulse Oximetry 96 Oxygen Delivery Method Nasal Cannula Oxygen Flow Rate 1 Oxygen Delivery Method Nasal Cannula Oxygen Flow Rate 1 Narrative Exam Narrative: General - in no distress, lying in bed HEENT - EOMI, oxygen via NC, supple neck CVS - RRR on a monitor RS - tachypneic GI - obese, not distended abdomen Ext - w/o edema Neuro - lucid, appropriate mood and affect, w/o acute gross focal deficits Objective ECG Impression: NSR 92, without acute ischemic changes Q wave in inferior wall - recent NSTEMI QTc 422 ms Imaging Chest x-ray: Radiologist's impression: Lungs and pleura: Small bilateral pleural effusions. Prominent pulmonary markings. Mediastinum: Mediastinal contours appear unchanged. Heart size is prominent. Bones and chest wall: No suspicious bony lesions. Overlying soft tissues appear unremarkable. Labs 03/11/25 05:30 03/11/25 05:30 Labs: Laboratory Results - last 24 hr 03/11/25 03/11/25 00:09 02:00 WBC 14.4 H RBC 4.08 Hgb 11.5 L Hct 34.7 L MCV 85.0 MCH 28.1 MCHC 33.1 RDW 15.2 H Plt Count 341 Neut % (Auto) 89.9 H Lymph % (Auto) 5.7 L [place] % (Auto) 3.8 Eos % (Auto) 0.0 L Baso % (Auto) 0.6 Neut # (Auto) 48099 H Lymph # (Auto) 800 L [place] # (Auto) 600 Eos # (Auto) 0 Baso # (Auto) 100 PT 11.6 INR 1.0 APTT 23 L Sodium 129 L Potassium 4.3 Chloride 100 Carbon Dioxide 21 L BUN 16 Creatinine 0.72 Estimated GFR > 60 BUN/Creatinine Ratio 22.2 H Glucose 153 H Calcium 9.1 Magnesium 1.9 Total Bilirubin 1.1 AST 68 H ALT 81 H Alkaline Phosphatase 149 H Total Creatine Kinase 88 Troponin I 0.126 H* 0.099 H NT-Pro-B Natriuret Pep 31376 H Total Protein 7.6 Albumin 4.1 Globulin 3.5 Albumin/Globulin Ratio 1.2 Lipase 105 Assessment & Plan Assessment and plan (1) Acute on chronic HFrEF (heart failure with reduced ejection fraction): Status: Acute (2) Acute hypoxic respiratory failure: Status: Acute (3) CAD (coronary artery disease): Status: Acute (4) Type 2 diabetes mellitus with diabetic mononeuropathy: Qualifiers: Diabetes mellitus buttermaker continuous churn insulin use: without buttermaker continuous churn use Qualified Code(s): E11.41 - Type 2 diabetes mellitus with diabetic mononeuropathy Status: Acute (5) Chronic lower back pain: Qualifiers: Back pain laterality: midline Sciatica presence: without sciatica Qualified Code(s): M54.50 - Low back pain, unspecified; G89.29 - Other chronic pain Status: Acute (6) GERD (gastroesophageal reflux disease): Qualifiers: Esophagitis presence: without esophagitis Qualified Code(s): K21.9 - Gastro-esophageal reflux disease without esophagitis Status: Acute (7) Urinary incontinence: Qualifiers: Urinary Incontinence type: stress incontinence Qualified Code(s): N39.3 - Stress incontinence (female) (male) Status: Acute (8) Acquired hypothyroidism: Status: Acute Assessment & Plan narrative: Acute on chronic HFrEF - diuresis, had 20 mg of Lasix x 2 in the ED - not on diuretic at home, continue with 40 mg po daily - monitored renal function / electrolytes - Is/Os - Jardiance - telemetry monitoring Acute hypoxic respiratory failure - prn oxygen CAD / Recent inferior NSTEMI - Plavix, statin, BB HTN - home losartan 25 mg daily held - metoprolol LBP - Neurontin Hypothyroidism - levothyroxine 50 mcg daily - TSH pending Anemia - stable HH Recent CVA - w/o focal deficits - Plavix, statin GERD - Pepcid Urinary incontinence - chronic - purewick with diuresis DVT prophylaxis - Lovenox Patient consented to audio-visual, telemedicine encounter with RN assisting during the exam. Patient located at [place], [place]. Provider located in [place]. Time-Based Coding :: [TOTAL MINUTES] spent with patient and on the chart (including review of chart, obtaining history, exam, reviewing outside data, placing orders, documenting exam and treatment plan, and counseling patient) on [DATE].
[2025-03-11 05:37] LABS: Add Manual Diff / Slide Review NO; Hematocrit 31.5 % (36-46); Hemoglobin 10.7 g/dL (12.0-16.0); Lymphocytes Absolute Auto 1300 /uL (1100-4500); Mean Corpuscular HGB Conc 33.9 % (30-36); Mean Corpuscular Hemoglobin 28.5 PG (26-34); Mean Corpuscular Volume 84.2 fL (80-100); Platelet Count 284 X10^3/uL (150-400)
[2025-03-11 05:47] LABS: Blood Urea Nitrogen 13 mg/dL (7-17); Calcium 7.6 mg/dL (8.4-10.2); Carbon Dioxide 21 mmol/L (22-32); Chloride 106 mmol/L (98-107); Estimated Glomerular Filt Rate > 60 mL/min (>60); Glucose 97 mg/dL (70-99); HEMOLYSIS < 15 (0-50); Potassium 3.5 mmol/L (3.4-5.1); Sodium 134 mmol/L (137-145)
[2025-03-11 08:55] LABS: Thyroid Stimulating Hormone 2.93 uIU/mL (0.47-4.68)
[2025-03-11] MEDS: METOPROLOL ER 25 MG TABLET 12.5 MG PO (09:11)
[2025-03-11] MEDS: ATORVASTATIN 20 MG TABLET 80 MG PO (09:13)
[2025-03-11] MEDS: ENOXAPARIN 30 MG/0.3 ML SYRINGE SUBCUT (09:13)
[2025-03-11] MEDS: FUROSEMIDE 40 MG TABLET PO (09:14)
[2025-03-11] MEDS: CLOPIDOGREL 75 MG TABLET PO (09:14)
[2025-03-11] MEDS: FAMOTIDINE 20 MG TABLET PO (09:14)
[2025-03-11] MEDS: LEVOTHYROXINE 50 MCG TABLET PO (09:30)
--- NOTE | 2025-03-11 10:20 | CM.DANOTE ---
ED PRODUCT SUPPORT TECHNICIAN DCP Assessment Note: Pt is a 89yo female, resident of [place], is admitted for CHF exacerbation, shortness of breath. Pt lives in a house alone, her daughter in law has been staying with her recently. Pt's Primary Care Provider is Dr. Klever Moya and insurance is [employer] Medicare. Reviewed chart and discussed with multidisciplinary team pt's medical status and initial discharge needs. Per Provider, pt had a recent stay at [facility] and she discharged to the Acute Rehab Center at [facility]. She was just discharged home yesterday, 03/10. ED PRODUCT SUPPORT TECHNICIAN met w/patient at bedside; introduced self and role. Patient was found in bed, alert and oriented, cooperative with assessment. Pt confirmed living situation and good support in daughter in [place]. Pt expressed preference in discharge home when cleared, open to home health. Pt has no history of home health, recent stay [place] [facility] Plan: Acute Care admission, anticipating PT/OT evaluations for recommendations for evolving care plans. Pt daughter in law can transport pt home. CM team will follow closely for coordination of discharge plans. ZAIN Comer Discharge Planning/Care Management CM Discharge Assessment Start: 03/11/25 07:42 Freq: Status: Active Protocol: Document 03/11/25 10:17 MW (Rec: 03/11/25 10:20 MW [id number]) Discharge Planning Assessment Assigned Discharge [place] Nurse Orthopedic Provider Dr. Klever Moya Insurance [facility] DPOA/Assigned Valdemar Mera in Designee Name Contact Information [phone] Advance Directives? No Has Patient been No admitted in last 30 days? Prior Living House Arrangements Household Members none Comment Daughter in lawMaryjane, has been staying with her for initial recovery. Type of Relies on Others transporation used prior to admit Independent with ADL Yes 's Is patient alert and Yes oriented? Caregiver for No Another DME Already Rented / FWW / Walker Owned Patient/Family Home with Home Health Preference Barriers to No Discharge Discharge Plan Home Transportation Valdemar in [place] Arrangement Referrals Initiated None needed Review Status In Process Please Provide Date 03/11/25 Initial DC Assessment Was Performed Next Review Type Continued Stay Review
--- NOTE | 2025-03-11 10:22 | PC.NURSE ---
Pt states she is DM II, states she is not insulin dependent and only checks her BG once or twice a week. Pt takes Jardiance, but does not have it with her and this hospital's pharmacy does not stock it. Provider aware.
--- NOTE | 2025-03-11 15:25 | P.HP_ITS ---
History of Present Illness History of Present Illness Date Patient Seen: 03/11/25 Chief complaint: SOB acute on chronic systolic congestive heart jolanta Narrative: Chief complaint: Shortness for breath secondary to acute on chronic systolic congestive heart failure History of present illness: 03/11: 89 old female February 20 had a non STEMI echocardiogram showed an EF of 30-40% with mid to distal inferior mid to distal inferolateral distal lateral and mid to distal septal and severe apical hypokinesis. Was to Under go cardiac catheterization [facility] which was not performed due to stroke-like symptoms and was sent to [facility] for Interventional Radiology. Patient was discharged after that hospitalization in stable condition. 03/10 patient began having increasing shortness for breath came to the emergency room at [facility]. Findings in the emergency department significant for hypoxia with evidence of pulmonary edema and bilateral pleural effusions on chest x-ray. Brain natriuretic peptide 18,000 Troponin 0.099. Patient given IV Lasix in the emergency department sodium 134 BUN creatinine satisfactory Hospital course: 03/11: Patient had 2 L of diuresis after Lasix with improvement of hypoxia and labored respirations Review of systems: No chest pain No fever or chills No nausea vomiting diarrhea No urinary symptom No paresthesia paresis Physical exam: Very pleasant elderly female no labored respirations HEENT unremarkable Heart sounds distant no murmurs appreciated Lungs sounds distant basilar rales bilaterally Abdomen nontender Extremities no edema no cyanosis Neuro alert and oriented For objective laboratory and imaging studies please see the bottom of the note Assessment and plan: Acute on chronic systolic congestive heart failure with ejection fraction of 30- 35% and global hypokinesis * Continue diuresis * Continue losartan metoprolol * and GDMT * Lasix 40 mg p.o. b.i.d. * Repeat chest x-ray 03/12 * MOSHE Recent non STEMI and CVA * Continue high-intensity statin and Plavix DVT prophylaxis: * Enoxaparin Code status: * Do not resuscitate Disposition: * Convert to inpatient care for continued diuresis Time based billin minutes were involved evaluation of this patient including [id number] evaluation with the patient physical examination review of objective laboratory and imaging and Cardiology steady review of previous records and discussion with treatment team FOR[facility]LY [facility] Medical History Type 2 diabetes mellitus with diabetic mononeuropathy Acquired hypothyroidism Prediabetes Medicare annual wellness visit, subsequent History of squamous cell carcinoma Hyponatremia Lumbar stenosis with neurogenic claudication Facet arthropathy, lumbar Chronic lower back pain Foot pain, right Renal insufficiency Osteopenia GERD (gastroesophageal reflux disease) Scar tissue Hip problem Seasonal allergies Spinal stenosis (~2013) Measles Hearing loss (~1940) History of urinary incontinence Diabetes mellitus Hypertension Hyperlipidemia Surgical History History of carpal tunnel surgery Anesthesia Surgical procedure planned (~08/29/13) History of cataract removal with insertion of prosthetic lens (11/02/11) History of cataract removal with insertion of prosthetic lens (10/19/11) Status post colonoscopy Status post appendectomy Status post tubal ligation Family History Child Hypertension High cholesterol Mother Hypertension High cholesterol Sister Age: 86 Rheumatoid arthritis Brother Cancer Father No problems noted. Social History household members: none Meds Home Medications and Allergies Home Medications ?Medication ?Instructions ?Recorded ?Confirmed ?Type gabapentin 300 mg capsule 300 mg PO HS #90 caps 03/11/25 Rx (Neurontin) blood-glucose meter (Blood Glucose #1 ea 04/17/2002/12 Rx Monitoring kit) Disabled Parking Permit #1 ea 08/19/20 03/11/25 Rx famotidine 20 mg PO DAILY 02/03/2102/12 History blood sugar diagnostic (Blood #100 ea 05/13/22 5 Rx Glucose Test strips) calcium carbonate (Calcium 600) 600 mg PO DAILY 03/11/25 History losartan 25 mg tablet 12.5 mg PO DAILY 12/19/24 History levothyroxine 50 mcg tablet 50 mcg PO DAILY #90 tabs 0 01/25/25 03/11/25 Rx atorvastatin 80 mg tablet 80 mg PO DAILY 03/11/2502/12 History clopidogrel 75 mg tablet 75 mg PO DAILY 03/11/2502/12 History empagliflozin 10 mg tablet 10 mg PO DAILY 03/11/25 History (Jardiance) metoprolol succinate 25 mg 12.5 mg PO DAILY 03/11/25 0 03/11/25 History tablet,extended release 24 hr Allergies Allergy/AdvReac Type Severity Reaction Status Date / Time lisinopril AdvReac Mild COUGH Verified 03/10/25 23:17 Exam Vital Signs (past 8 hours): - 03/11/25 07:30 03/11/25 08:00 03/11/25 08:00 Pulse Rate 59 L 60 Respiratory Rate 18 23 Blood Pressure 122/57 L Pulse Oximetry 98 98 Oxygen Delivery Method Nasal Cannula Oxygen Flow Rate 1 03/11/25 08:30 03/11/25 09:00 03/11/25 09:00 Pulse Rate 87 88 Respiratory Rate 31 H 29 H Blood Pressure 133/64 Pulse Oximetry 96 97 Oxygen Delivery Method Nasal Cannula Oxygen Flow Rate 1 03/11/25 09:11 03/11/25 09:30 03/11/25 10:00 Pulse Rate 86 84 78 Respiratory Rate 24 23 Blood Pressure 133/64 Pulse Oximetry 98 96 Oxygen Delivery Method Nasal Cannula Oxygen Flow Rate 1 03/11/25 10:01 03/11/25 10:01 03/11/25 10:16 Pulse Rate 75 76 Respiratory Rate 20 Blood Pressure 150/65 H 150/69 H Pulse Oximetry 96 Oxygen Delivery Method Nasal Cannula Oxygen Flow Rate 2 03/11/25 10:30 03/11/25 11:00 03/11/25 11:01 Pulse Rate 75 81 Respiratory Rate 23 21 Blood Pressure 155/67 H Pulse Oximetry 97 97 Oxygen Delivery Method Nasal Cannula Oxygen Flow Rate 1 03/11/25 11:01 03/11/25 11:23 03/11/25 11:30 Pulse Rate 77 71 Respiratory Rate 22 21 Blood Pressure Pulse Oximetry 95 91 Oxygen Delivery Method Nasal Cannula Nasal Cannula Oxygen Flow Rate 1 03/11/25 12:00 03/11/25 12:01 03/11/25 12:01 Pulse Rate 78 77 Respiratory Rate 21 23 Blood Pressure 126/60 Pulse Oximetry 97 97 Oxygen Delivery Method Nasal Cannula Oxygen Flow Rate 1 03/11/25 12:30 03/11/25 13:00 03/11/25 13:00 Pulse Rate 79 86 Respiratory Rate 25 H 25 H Blood Pressure 130/75 Pulse Oximetry 97 96 Oxygen Delivery Method Nasal Cannula Oxygen Flow Rate 1 03/11/25 13:30 03/11/25 14:00 03/11/25 14:01 Pulse Rate 81 82 80 Respiratory Rate 23 20 25 H Blood Pressure Pulse Oximetry 91 95 95 Oxygen Delivery Method Nasal Cannula Oxygen Flow Rate 1 03/11/25 14:01 Pulse Rate Respiratory Rate Blood Pressure 152/66 H Pulse Oximetry Oxygen Delivery Method Oxygen Flow Rate Oxygen Delivery Method Nasal Cannula Oxygen Flow Rate 1 Objective Labs 03/11/25 05:30 03/11/25 05:30 Labs: Laboratory Results - last 24 hr 03/11/25 03/11/25 03/11/25 00:09 02:00 05:30 WBC 14.4 H 10.5 RBC 4.08 3.74 L Hgb 11.5 L 10.7 L Hct 34.7 L 31.5 L MCV 85.0 84.2 MCH 28.1 28.5 MCHC 33.1 33.9 RDW 15.2 H 15.3 H Plt Count 341 284 Neut % (Auto) 89.9 H 81.3 H Lymph % (Auto) 5.7 L 12.3 L Woods % (Auto) 3.8 5.5 Eos % (Auto) 0.0 L 0.1 L Baso % (Auto) 0.6 0.8 Neut # (Auto) 44756 H 8500 H Lymph # (Auto) 800 L 1300 Woods # (Auto) 600 600 Eos # (Auto) 0 0 Baso # (Auto) 100 100 PT 11.6 INR 1.0 APTT 23 L Sodium 129 L 134 L Potassium 4.3 3.5 Chloride 100 106 Carbon Dioxide 21 L 21 L BUN 16 13 Creatinine 0.72 0.60 Estimated GFR > 60 > 60 BUN/Creatinine Ratio 22.2 H 21.7 Glucose 153 H 97 Calcium 9.1 7.6 L Magnesium 1.9 Total Bilirubin 1.1 AST 68 H ALT 81 H Alkaline Phosphatase 149 H Total Creatine Kinase 88 Troponin I 0.126 H* 0.099 H NT-Pro-B Natriuret Pep 03493 H Total Protein 7.6 Albumin 4.1 Globulin 3.5 Albumin/Globulin Ratio 1.2 Lipase 105 TSH 2.93 Assessment & Plan Time-Based Coding :: [TOTAL MINUTES] spent with patient and on the chart (including review of chart, obtaining history, exam, reviewing outside data, placing orders, documenting exam and treatment plan, and counseling patient) on [DATE].
[2025-03-11] MEDS: GABAPENTIN 300 MG CAPSULE PO (20:37)
[2025-03-12 03:00] VITALS: BP 125/63; PULSE 65; RESP 18; TEMP 36.9; O2SAT 95
[2025-03-12] MEDS: ATORVASTATIN 20 MG TABLET 80 MG PO (08:33)
[2025-03-12] MEDS: FUROSEMIDE 40 MG TABLET PO (08:33)
[2025-03-12] MEDS: METOPROLOL ER 25 MG TABLET 12.5 MG PO (08:34)
[2025-03-12] MEDS: CLOPIDOGREL 75 MG TABLET PO (08:34)
[2025-03-12] MEDS: LEVOTHYROXINE 50 MCG TABLET PO (08:34)
[2025-03-12] MEDS: FAMOTIDINE 20 MG TABLET PO (08:34)
[2025-03-12] MEDS: ENOXAPARIN 30 MG/0.3 ML SYRINGE SUBCUT (08:34)
[2025-03-12 13:03] LABS: Blood Urea Nitrogen 18 mg/dL (7-17); Calcium 8.8 mg/dL (8.4-10.2); Carbon Dioxide 26 mmol/L (22-32); Chloride 98 mmol/L (98-107); Estimated Glomerular Filt Rate 60 mL/min (>60); Glucose 133 mg/dL (70-99); HEMOLYSIS < 15 (0-50); Potassium 3.9 mmol/L (3.4-5.1); Sodium 132 mmol/L (137-145)
[2025-03-12 19:50] VITALS: BP 106/67; PULSE 76; RESP 18; TEMP 36.2; O2SAT 93
[2025-03-12] MEDS: GABAPENTIN 300 MG CAPSULE PO (22:52)
[2025-03-12 23:45] VITALS: BP 131/67; PULSE 72; RESP 18; TEMP 36.4; O2SAT 95
[2025-03-13 04:23] VITALS: BP 137/77; PULSE 97; RESP 18; TEMP 36.3; O2SAT 95
[2025-03-13] MEDS: METOPROLOL ER 25 MG TABLET 12.5 MG PO (08:34)
[2025-03-13] MEDS: LEVOTHYROXINE 50 MCG TABLET PO (08:34)
[2025-03-13] MEDS: CLOPIDOGREL 75 MG TABLET PO (08:34)
[2025-03-13] MEDS: FUROSEMIDE 40 MG TABLET PO (08:34)
[2025-03-13] MEDS: ENOXAPARIN 40 MG/0.4 ML SYRINGE SUBCUT (08:34)
[2025-03-13] MEDS: ATORVASTATIN 20 MG TABLET 80 MG PO (08:34)
[2025-03-13] MEDS: FAMOTIDINE 20 MG TABLET PO (08:34)
[2025-03-13] MEDS: SODIUM CHLORIDE 0.9% FLUSH 10 ML IV (08:35)
--- NOTE | 2025-03-13 10:23 | P.DS_ITS ---
History of Present Illness History of Present Illness Chief complaint: SOB acute on chronic systolic congestive heart jolanta Narrative: From H&P: 89 y/o with PMH of HFrEF, HTN, recent NSTEMI and CVA, presented with progressive dyspnea. She was recently transferred from [facility] to [facility] with NSTEMI for an angiogram and from there to [facility] with a stroke, for possible intervention. She did not have it and was discharged home . On admission to ED hypoxic and congested, with evidence of CHF exacerbation. Elevated but then down-trending troponin. Treated with IV diuretic and admitted to telemetry for monitored diuresis. Discharge Providers Provider Date of admission: 03/11/25 02:04 Discharge Date: 03/13/25 Primary care physician: Klever Moya DO Consults: 03/11/25 16:00 Consult to Pharmacy Routine Comment: at discharge if any new meds. Pt has a med in phar Discharge provider: Dalton Omalley MD Summary Hospital Course Discharge Diagnosis: 1. Acute on chronic systolic heart failure with EF of 30 35% and global hypokinesis. 2. Acute hypoxic respiratory failure, improved. 3. Recent NSTEMI 4. Recent CVA Hospital Course: She was admitted and diuresed and improved. She was not taking home diuretics. She was on losartan and metoprolol chronically. She felt that she was at her baseline and desired discharge home on March 13. She will be started on Lasix at a low dose with potassium supplementation and close follow up with her primary care doctor. Status at Discharge Cognitive/behavioral status at discharge: oriented Functional status at discharge: independent ambulation Overall status at discharge: patient is back to baseline Time Spent with Patient Time spent: Greater than 30 minutes Exam Vital Signs (past 8 hours): - 03/13/25 04:23 Temperature 97.3 F L Pulse Rate 97 H Respiratory Rate 18 Blood Pressure 137/77 Pulse Oximetry 95 Oxygen Flow Rate 0 Oxygen Delivery Method Nasal Cannula Oxygen Flow Rate 0 Narrative Exam Narrative: NAD, alert and oriented. Fluent speech. Lungs are clear, normal rate and effort. Heart is regular, no murmur gallop or rub. Abdomen is soft, non distended. Extremities are free of edema. Objective ECG Impression: Intervals [place] Rate: 92 P: 40 PA: 202 QRS: 86 QRSD: 84 T: -81 QT: 342 QTc: 422 Interpretive Statements Normal sinus rhythm Possible Inferior infarct , age undetermined Anterolateral infarct , age undetermined Imaging Chest x-ray: My impression: Same as below. Radiologist's impression: Retrocardiac opacity concerning for developing pneumonia. Mild pulmonary edema with trace bilateral pleural effusions. Labs 03/11/25 05:30 03/12/25 12:45 Labs: Laboratory Results - last 24 hr 03/12/25 03/12/25 03/12/25 11:55 12:45 16:57 Sodium 132 L Potassium 3.9 Chloride 98 Carbon Dioxide 26 BUN 18 H Creatinine 0.92 Estimated GFR 60 BUN/Creatinine Ratio 19.6 Glucose 133 H POC Whole Bld Glucose 118 H 105 H Calcium 8.8 03/12/25 03/13/25 20:51 08:33 Sodium Potassium Chloride Carbon Dioxide BUN Creatinine Estimated GFR BUN/Creatinine Ratio Glucose POC Whole Bld Glucose 131 H 133 H Calcium COUNTS INCLUDE 234 BEDS AT THE [facility] Medical History Type 2 diabetes mellitus with diabetic mononeuropathy Acquired hypothyroidism Prediabetes Medicare annual wellness visit, subsequent History of squamous cell carcinoma Hyponatremia Lumbar stenosis with neurogenic claudication Facet arthropathy, lumbar Chronic lower back pain Foot pain, right Renal insufficiency Osteopenia GERD (gastroesophageal reflux disease) Scar tissue Hip problem Seasonal allergies Spinal stenosis (~2013) Measles Hearing loss (~194) History of urinary incontinence Diabetes mellitus Hypertension Hyperlipidemia Surgical History History of carpal tunnel surgery Anesthesia Surgical procedure planned (~08/29/13) History of cataract removal with insertion of prosthetic lens (11/02/11) History of cataract removal with insertion of prosthetic lens (10/19/11) Status post colonoscopy Status post appendectomy Status post tubal ligation Family History Child Hypertension High cholesterol Mother Hypertension High cholesterol Sister Age: 86 Rheumatoid arthritis Brother Cancer Father No problems noted. Social History household members: none Smoking Status: Never smoker alcohol intake: current Discharge Assessment & Plan Assessment and Plan Assessment: 1. Acute on chronic systolic heart failure, improved. Plan of Treatment: We will discharge her on Lasix 20 mg daily with 8 mEq of potassium chloride and close follow up. She will fluid restrict a 1200 mL of water a day. Discharge Plan Discharge Plan Patient Disposition: Home Provider Discharge Comment: Stable for discharge home, home diuretics. Discharge orders & Medications Prescriptions: New furosemide [Lasix] 20 mg tablet 20 mg PO DAILY Qty: 30 0RF potassium chloride 8 mEq capsule, extended release 8 meq PO DAILY Qty: 30 0RF Continued (DME) Disabled Parking Permit See Rx Instructions .ROUTE .MEDSUPPLY Qty: 1 0RF Rx Instructions: Valid for 5 years gabapentin [Neurontin] 300 mg capsule 300 mg PO HS Qty: 90 1RF (DME) blood-glucose meter [Blood Glucose Monitoring] Kit See Rx Instructions .ROUTE .MEDSUPPLY Qty: 1 0RF Rx Instructions: One touch Verio IQ- use to check blood sugars once daily famotidine [Pepcid] 20 mg PO DAILY (DME) Blood Glucose Test Strip See Rx Instructions .ROUTE .MEDSUPPLY Qty: 100 2RF Rx Instructions: Use One Touch Verio test strips with monitor to test blood sugars once daily. levothyroxine 50 mcg tablet 50 mcg PO DAILY Qty: 90 3RF losartan 25 mg tablet 12.5 mg PO DAILY atorvastatin 80 mg tablet 80 mg PO DAILY clopidogrel 75 mg tablet 75 mg PO DAILY metoprolol succinate 25 mg tablet extended release 24 hr 12.5 mg PO DAILY Jardiance 10 mg tablet 10 mg PO DAILY calcium carbonate [Calcium 600] 600 mg calcium (1,500 mg) tablet 600 mg PO DAILY Follow up/Referrals: Klever Moya DO [Primary Care Provider, [facility]] Discharge Health Status Multidrug resistant organism: No MDRO Diet/Activity/Treatments Diet: Low-sodium Diet comment: 1200 ml fluid restrict a day Visit Report/Discharge Packet Instructions: DI for Heart Failure Stand Alone Forms: Congestive Heart Failure, Patient Portal/API, Stroke Signs & Symptoms Discharge Data Primary Care Provider: Klever Moya Quality VTE Deep Vein Thrombosis/Pulmonary Embolism Present on Admission: No
--- NOTE | 2025-03-13 11:04 | CM.DPC ---
DCP Cont. Reviewed EMR and team rounds for pt's status updates. Pt has been medically cleared for home d/c. Her family are at bedside and are transporting her home. No further CM d/c or resource needs are indicated at this time.
--- NOTE | 2025-03-13 11:25 | PC.NURSE ---
IV out and telemetry removed. Discussed s/s of heart failure, s/s of stroke, daily weight checks, MD follow up, medications, and when to come to ER. All questions answered. Patient wheeled out in wheelchair to private vehicle by RN.
--- NOTE | 2025-03-16 07:41 | P.PN_ITS ---
Subjective Subjective Date Patient Seen: 03/12/25 Interval history: Chief complaint: Shortness for breath secondary to acute on chronic systolic congestive heart failure History of present illness: 03/11: 89 old female February 20 had a non STEMI echocardiogram showed an EF of 30-40% with mid to distal inferior mid to distal inferolateral distal lateral and mid to distal septal and severe apical hypokinesis. Was to Under go cardiac catheterization [facility] which was not performed due to stroke-like symptoms and was sent [facility]. Patient was discharged after that hospitalization in stable condition. 03/10 patient began having increasing shortness for breath came to the emergency room at [facility]. Findings in the emergency department significant for hypoxia with evidence of pulmonary edema and bilateral pleural effusions on chest x-ray. Brain natriuretic peptide 18,000 Troponin 0.099. Patient given IV Lasix in the emergency department sodium 134 BUN creatinine satisfactory Hospital course: 03/12: Patient had 2 L of diuresis after Lasix with improvement of hypoxia and labored respirations Review of systems: No chest pain No fever or chills No nausea vomiting diarrhea No urinary symptom No paresthesia paresis Physical exam: Very pleasant elderly female no labored respirations HEENT unremarkable Heart sounds distant no murmurs appreciated Lungs sounds distant basilar rales bilaterally Abdomen nontender Extremities no edema no cyanosis Neuro alert and oriented For objective laboratory and imaging studies please see the bottom of the note Assessment and plan: Acute on chronic systolic congestive heart failure with ejection fraction of 30- 35% and global hypokinesis * Continue diuresis * Continue losartan metoprolol * and GDMT * Lasix 40 mg p.o. b.i.d. * Repeat chest x-ray 03/12 * MOSHE Recent non STEMI and CVA * Continue high-intensity statin and Plavix DVT prophylaxis: * Enoxaparin Code status: * Do not resuscitate Disposition: * Convert to inpatient care for continued diuresis Time based billin minutes were involved evaluation of this patient including [id number] evaluation with the patient physical examination review of objective laboratory and imaging and Cardiology steady review of previous records and discussion with treatment team Exam Vital Signs (past 8 hours): Oxygen Delivery Method Nasal Cannula Oxygen Flow Rate 0 Objective Labs 03/11/25 05:30 03/12/25 12:45 FORMERLY [facility] Medical History History of ST elevation myocardial infarction (STEMI) Pleural effusion associated with pulmonary infection CVA (cerebral vascular accident) Type 2 diabetes mellitus with diabetic mononeuropathy Acquired hypothyroidism Prediabetes Medicare annual wellness visit, subsequent History of squamous cell carcinoma Hyponatremia Lumbar stenosis with neurogenic claudication Facet arthropathy, lumbar Chronic lower back pain Foot pain, right Renal insufficiency Osteopenia GERD (gastroesophageal reflux disease) Scar tissue Hip problem Seasonal allergies Spinal stenosis (~2013) Measles Hearing loss (~1940) History of urinary incontinence Diabetes mellitus Hypertension Hyperlipidemia Surgical History History of carpal tunnel surgery Anesthesia Surgical procedure planned (~08/29/13) History of cataract removal with insertion of prosthetic lens (11/02/11) History of cataract removal with insertion of prosthetic lens (10/19/11) Status post colonoscopy Status post appendectomy Status post tubal ligation Family History Child Hypertension High cholesterol Mother Hypertension High cholesterol Sister Age: 86 Rheumatoid arthritis Brother Cancer Father No problems noted. Social History household members: none alcohol intake: current Assessment & Plan Time-Based Coding :: [TOTAL MINUTES] spent with patient and on the chart (including review of chart, obtaining history, exam, reviewing outside data, placing orders, documenting exam and treatment plan, and counseling patient) on [DATE]. Quality VTE Deep Vein Thrombosis/Pulmonary Embolism Present on Admission: No
== END 2025-03-13 11:25 | disposition home or self-care (01) | DRG 291 ==
LOC: ED 03-11 01:56 → AC 03-11 07:35
PROVIDERS: Family Medicine; Internal Medicine; Admitting Provider Internal Medicine; Emergency Provider Emergency Medicine; Family Provider Family Medicine; PCP Family Medicine; Visit Provider Internal Medicine
DX: I11.0 Hypertensive heart disease with heart failure (principal); I50.23 Acute on chronic systolic (congestive) heart failure; J96.01 Acute respiratory failure with hypoxia; I25.10 Atherosclerotic heart disease of native coronary artery without angina pectoris; E11.41 Type 2 diabetes mellitus with diabetic mononeuropathy; M54.50 Low back pain, unspecified; G89.29 Other chronic pain; K21.9 Gastro-esophageal reflux disease without esophagitis; N39.3 Stress incontinence (female) (male); E03.9 Hypothyroidism, unspecified; D64.9 Anemia, unspecified; E78.5 Hyperlipidemia, unspecified; I25.2 Old myocardial infarction; Z86.73 Personal history of transient ischemic attack (TIA), and cerebral infarction without residual deficits; Z79.02 Long term (current) use of antithrombotics/antiplatelets; Z79.890 Hormone replacement therapy; Z79.84 Long term (current) use of oral hypoglycemic drugs
CPT/HCPCS: 36415; 71045; 80048; 80053; 82550; 82962; 83690; 83735; 83880; 84443; 84484; 85025; 85610; 85730; 93005; 96374; 96376; 99285; A9270; J1650; J1938

== ENCOUNTER → 2025-05-15 09:16 | Outpatient (CLI) | payer MEDICARE, SELFPAY ==
[2025-03-11 15:30] VITALS: BMI 27.4
--- NOTE | 2025-05-15 09:17 | DI.RAD.S_ITS ---
PROCEDURE: XR CHEST 2V INDICATIONS: screening TECHNIQUE: 2 views of the chest were acquired. COMPARISON: [facility], CR, XR CHEST 1V, 03/10/2025, 23:33. [facility], CR, XR CHEST 1V, 02/18/2025, 13:12. FINDINGS: Surgical changes and devices: None. Lungs and pleura: Small right greater than left pleural effusions, similar compared to prior. Prominent interstitial markings. Mediastinum: Mediastinal contours are normal. Heart size is prominent, stable. Bones and chest wall: No suspicious bony abnormalities. Soft tissues appear unremarkable. IMPRESSION: Small bilateral pleural effusions, greater on the right appear similar to prior. Increased interstitial markings concerning for pulmonary edema/CHF. Recommend clinical correlation. Dictated by: Lg Cutler M.D. on 05/15/2025 at 10:24 Approved by: Lg Cutler M.D. on 05/15/2025 at 10:25
[2025-05-15 10:09] LABS: Hemoglobin A1C% w Est Avg Glu 6.1 % (4.0-6.0)
[2025-05-15 10:18] LABS: HEMOLYSIS < 15 (0-50); Iron 34 ug/dL (37-170)
[2025-05-15 10:19] LABS: Alanine Aminotransferase 18 IU/L (<35); Albumin 3.8 g/dL (3.5-5.0); Albumin Globulin Ratio 1.1 (1.0-2.8); Alkaline Phosphatase 76 U/L (38-126); Blood Urea Nitrogen 17 mg/dL (7-17); Calcium 9.3 mg/dL (8.4-10.2); Carbon Dioxide 21 mmol/L (22-32); Chloride 103 mmol/L (98-107); Estimated Glomerular Filt Rate > 60 mL/min (>60); Globulin 3.4 g/dL (1.7-4.1); Glucose 133 mg/dL (70-99); HEMOLYSIS < 15 (0-50); Potassium 4.7 mmol/L (3.4-5.1); Sodium 136 mmol/L (137-145); Total Protein 7.2 g/dL (6.3-8.2)
[2025-05-15 10:29] LABS: Percent Iron Saturation 14 % (15-50); Total Iron Binding Capacity 235 ug/dL (265-497); Transferrin 196 mg/dL (206-381)
[2025-05-15 10:33] LABS: Vitamin D 25 Hydroxy (D3) 39.1 ng/mL (30.0-100.0)
[2025-05-15 10:34] LABS: Free T4, Direct Thyroxine 1.49 ng/dL (0.78-2.19)
[2025-05-15 10:48] LABS: Thyroid Stimulating Hormone 1.63 uIU/mL (0.47-4.68)
[2025-05-15 11:07] LABS: Vitamin B12 316 pg/mL (239-931)
== END ==
PROVIDERS: Family Provider Family Medicine; PCP Family Medicine; Referring Provider Family Medicine; Visit Provider Family Medicine
DX: J18.9 Pneumonia, unspecified organism (principal); J91.8 Pleural effusion in other conditions classified elsewhere; I63.30 Cerebral infarction due to thrombosis of unspecified cerebral artery; R73.03 Prediabetes; I10 Essential (primary) hypertension; E78.2 Mixed hyperlipidemia; E03.9 Hypothyroidism, unspecified
CPT/HCPCS: 36415; 71046; 80053; 82306; 82607; 83036; 83540; 83550; 84439; 84443

== ENCOUNTER → 2025-06-10 15:20 | Outpatient (CLI) | payer MEDICARE, SELFPAY ==
[2025-03-11 15:30] VITALS: BMI 27.4
--- NOTE | 2025-06-10 15:23 | DI.RAD.S_ITS ---
PROCEDURE: XR CHEST 2V INDICATIONS: COUGH TECHNIQUE: 2 views of the chest were acquired. COMPARISON: [facility], CR, XR CHEST 2V, 05/15/2025, 9:25. [facility], CR, XR CHEST 1V, 03/10/2025, 23:33. FINDINGS: Moderate right effusion, unchanged. Pulmonary vascular congestion. Heart size normal. No pneumothorax. No focal consolidation. IMPRESSION: Unchanged moderate right effusion. Dictated by: Homer Mckeon M.D. on 06/10/2025 at 16:54 Approved by: Homer Mckeon M.D. on 06/10/2025 at 16:54
== END ==
LOC: RAD 15:21
PROVIDERS: Family Provider Family Medicine; PCP Family Medicine; Referring Provider Nurse Practitioner Family; Visit Provider Nurse Practitioner Family
DX: R05.2 Subacute cough (principal); R09.89 Other specified symptoms and signs involving the circulatory and respiratory systems
CPT/HCPCS: 71046